=== PATIENT | female | born 1935 | race Two or more races ===

== ENCOUNTER → 2017-07-08 | Outpatient (CLI) | payer MEDICARE, OTHER ==
[2017-07-08 12:26] LABS: Basophils # (auto) 0.1 uL; Basophils % (auto) 1.1 % (0.0-2.0); Eosinophils # (auto) 0.2 uL; Eosinophils % (auto) 3.8 % (0.0-7.0); Hematocrit 37.6 % (36.0-46.0); Hemoglobin 12.8 g/dL (12.2-16.2); Lymphocytes # (auto) 1.3 uL; Lymphocytes % (auto) 24.1 % (10.0-50.0); Mean Corpuscular Hemoglobin 33.1 pg (28.0-32.0); Mean Corpuscular Hgb Conc. 34.2 g/dL (32.0-36.0); Mean Corpuscular Volume 96.9 fL (80.0-100.0); Monocytes # (auto) 0.5 uL; Monocytes % (auto) 9.8 % (0.0-12.0); Neutrophils # (auto) 3.3 uL; Neutrophils % (auto) 61.2 % (37.0-80.0); Nucleated Red Blood Cells % 0.1 %; Platelet Count (auto) 267 10^3/uL (140-450); Red Blood Cells 3.88 10^6/uL (4.0-5.20); Red Cell Distribution Width 14.5 % (11.8-14.3); White Blood Cell 5.4 10^3/uL (4.4-10.8)
[2017-07-08 12:56] LABS: Albumin 3.9 g/dL (3.4-5.0); Bilirubin, Direct 0.1 mg/dL (0-0.2); Bilirubin, Total 0.6 mg/dL (0.2-1.0); Calcium 10.2 mg/dL (8.5-10.1); Potassium 4.1 mmol/L (3.5-5.1); Total Protein 6.8 g/dL (6.4-8.2)
== END | disposition home or self-care (01) ==
LOC: LAB 09:25
PROVIDERS: ATTEND Internal Medicine Cardiovascular Disease
DX: E78.00 Pure hypercholesterolemia, unspecified (principal); D64.9 Anemia, unspecified; I10 Essential (primary) hypertension; E03.9 Hypothyroidism, unspecified; E11.9 Type 2 diabetes mellitus without complications; K74.1 Hepatic sclerosis
CPT/HCPCS: 36415; 80048; 80061; 80076; 83036; 84436; 84443; 85025

== ENCOUNTER → 2017-07-29 | Outpatient (CLI) | payer MEDICARE, OTHER | END | disposition home or self-care (01) | LOC: Rad HDHVI 15:48 | PROVIDERS: ATTEND Internal Medicine Cardiovascular Disease | DX: I20.9 Angina pectoris, unspecified (principal); E11.9 Type 2 diabetes mellitus without complications | CPT/HCPCS: 93306 ==

== ENCOUNTER → 2017-10-30 | Outpatient (CLI) | payer MEDICARE, OTHER | END | disposition home or self-care (01) | LOC: Rad HDHVI 12:55 | PROVIDERS: ATTEND Internal Medicine Cardiovascular Disease | DX: M79.89 Other specified soft tissue disorders (principal); E11.9 Type 2 diabetes mellitus without complications; I10 Essential (primary) hypertension; E03.9 Hypothyroidism, unspecified; E78.00 Pure hypercholesterolemia, unspecified | CPT/HCPCS: 93970 ==

== ENCOUNTER → 2017-12-20 | Outpatient (CLI) | payer MEDICARE, OTHER | END | disposition home or self-care (01) | LOC: Rad HDHVI 12:40 | PROVIDERS: ATTEND Internal Medicine Cardiovascular Disease | DX: M85.88 Other specified disorders of bone density and structure, other site (principal); I10 Essential (primary) hypertension; E03.9 Hypothyroidism, unspecified; E11.9 Type 2 diabetes mellitus without complications | CPT/HCPCS: 77078 ==

== ENCOUNTER → 2017-12-27 | Outpatient (CLI) | payer MEDICARE, BC | END | disposition home or self-care (01) | LOC: Rad HDHVI 14:47 | PROVIDERS: ATTEND Internal Medicine | DX: I10 Essential (primary) hypertension (principal); I48.0 Paroxysmal atrial fibrillation; R07.89 Other chest pain; E11.9 Type 2 diabetes mellitus without complications; E03.9 Hypothyroidism, unspecified; E78.00 Pure hypercholesterolemia, unspecified | CPT/HCPCS: 93306 ==

== ENCOUNTER → 2018-02-04 | Outpatient (CLI) | payer MEDICARE, BC ==
[2018-02-04 12:31] LABS: Basophils # (auto) 0.1 uL; Eosinophils # (auto) 0.2 uL; Monocytes # (auto) 0.5 uL; Monocytes % (auto) 8.1 % (0.0-12.0); Red Cell Distribution Width 14.8 % (11.8-14.3)
[2018-02-04 12:36] LABS: Basophils % (auto) 1.4 % (0.0-2.0); Eosinophils % (auto) 3.8 % (0.0-7.0); Hematocrit 36.3 % (36.0-46.0); Hemoglobin 12.2 g/dL (12.2-16.2); Lymphocytes # (auto) 1.4 uL; Lymphocytes % (auto) 21.8 % (10.0-50.0); Mean Corpuscular Hemoglobin 33.5 pg (28.0-32.0); Mean Corpuscular Hgb Conc. 33.6 g/dL (32.0-36.0); Mean Corpuscular Volume 99.7 fL (80.0-100.0); Neutrophils # (auto) 4.2 uL; Neutrophils % (auto) 64.9 % (37.0-80.0); Platelet Count (auto) 232 10^3/uL (140-450); Red Blood Cells 3.64 10^6/uL (4.0-5.20); White Blood Cell 6.5 10^3/uL (4.4-10.8)
[2018-02-04 12:53] LABS: Albumin 3.5 g/dL (3.4-5.0); BUN/Creatinine Ratio 21.3; Bilirubin, Total 0.5 mg/dL (0.2-1.0); Potassium 3.6 mmol/L (3.5-5.1); Total Protein 6.4 g/dL (6.4-8.2)
== END | disposition home or self-care (01) ==
LOC: LAB 10:52
PROVIDERS: ATTEND Internal Medicine Cardiovascular Disease
DX: D64.9 Anemia, unspecified (principal); E11.9 Type 2 diabetes mellitus without complications; I10 Essential (primary) hypertension
CPT/HCPCS: 36415; 80053; 83036; 85025

== ENCOUNTER → 2018-07-09 | Outpatient (CLI) | payer MEDICARE, BC | END | disposition home or self-care (01) | LOC: LAB 10:53 | PROVIDERS: ATTEND Internal Medicine | DX: E11.40 Type 2 diabetes mellitus with diabetic neuropathy, unspecified (principal) | CPT/HCPCS: 36415 ==

== ENCOUNTER → 2018-07-31 | Outpatient (CLI) | payer MEDICARE, BC ==
[2018-07-31 15:57] LABS: Urine Blood 1+ /uL (Negative); Urine Specific Gravity 1.014 (1.001-1.035)
== END | disposition home or self-care (01) ==
LOC: LAB 14:51
PROVIDERS: ATTEND Internal Medicine
DX: N39.0 Urinary tract infection, site not specified (principal)
CPT/HCPCS: 81003; 87086

== ENCOUNTER → 2018-11-17 | Outpatient (CLI) | payer MEDICARE, BC ==
[2018-11-17 13:15] LABS: Potassium 4.4 mmol/L (3.5-5.1)
[2018-11-17 13:32] LABS: Albumin 3.5 g/dL (3.4-5.0); Bilirubin, Total 0.4 mg/dL (0.2-1.0); Calcium 10.2 mg/dL (8.5-10.1); Total Protein 6.7 g/dL (6.4-8.2)
== END | disposition home or self-care (01) ==
LOC: LAB 10:20
PROVIDERS: ATTEND Internal Medicine
DX: E11.9 Type 2 diabetes mellitus without complications (principal); R53.1 Weakness; I10 Essential (primary) hypertension
CPT/HCPCS: 36415; 80053; 83036

== ENCOUNTER → 2018-12-23 | Outpatient (CLI) | payer MEDICARE, BC ==
[2018-12-23 16:59] LABS: Urine Blood 1+ /uL (Negative); Urine Specific Gravity 1.014 (1.001-1.035)
== END | disposition home or self-care (01) ==
LOC: LAB 12:32
PROVIDERS: ATTEND Internal Medicine
DX: N39.0 Urinary tract infection, site not specified (principal)
CPT/HCPCS: 81003

== ENCOUNTER → 2019-01-29 | Outpatient (CLI) | payer MEDICARE, BC ==
[2019-01-29 11:49] LABS: BUN/Creatinine Ratio 14.5; Potassium 4.4 mmol/L (3.5-5.1)
[2019-01-29 12:01] LABS: Free T4 (Free Thyroxine) 0.99 ng/dL (0.89-1.76)
[2019-01-29 12:02] LABS: Folate (Folic Acid) 16.25 ng/mL (5.38-24)
== END | disposition home or self-care (01) ==
LOC: LAB 10:01
PROVIDERS: ATTEND Internal Medicine
DX: E11.22 Type 2 diabetes mellitus with diabetic chronic kidney disease (principal); N18.9 Chronic kidney disease, unspecified
CPT/HCPCS: 36415; 80048; 82607; 82746; 84439; 84443

== ENCOUNTER → 2019-02-10 | Outpatient (CLI) | payer MEDICARE, BC | END | disposition home or self-care (01) | LOC: LAB 14:59 | PROVIDERS: ATTEND Internal Medicine | DX: E11.29 Type 2 diabetes mellitus with other diabetic kidney complication (principal) | CPT/HCPCS: 36415; 82043; 83036 ==

== ENCOUNTER → 2019-07-29 | Outpatient (CLI) | payer MEDICARE, BC ==
[2019-07-29 11:40] LABS: Basophils # (auto) 0.1 uL; Basophils % (auto) 0.7 % (0.0-2.0); Eosinophils # (auto) 0.6 uL; Eosinophils % (auto) 6.1 % (0.0-7.0); Hemoglobin 11.6 g/dL (12.2-16.2); Lymphocytes # (auto) 1.8 uL; Lymphocytes % (auto) 19.9 % (10.0-50.0); Mean Corpuscular Hgb Conc. 33.2 g/dL (32.0-36.0); Mean Corpuscular Volume 96.2 fL (80.0-100.0); Monocytes # (auto) 0.6 uL; Neutrophils % (auto) 66.3 % (37.0-80.0); Nucleated Red Blood Cells % 0.1 %; Platelet Count (auto) 266 10^3/uL (140-450); Red Blood Cells 3.64 10^6/uL (4.0-5.20); Red Cell Distribution Width 13.8 % (11.8-14.3); White Blood Cell 9.1 10^3/uL (4.4-10.8)
[2019-07-29 11:59] LABS: Urine Bacteria NONE SEEN /hpf (None Seen); Urine Blood TRACE /uL (Negative); Urine Mucus FEW (None Seen); Urine Specific Gravity 1.019 (1.001-1.035); Urine WBC 261 /hpf (0 - 5); Urine WBC Clumps PRESENT /hpf (None Seen)
[2019-07-29 12:20] LABS: Potassium 4.1 mmol/L (3.5-5.1)
[2019-07-29 12:26] LABS: Free T4 (Free Thyroxine) 1.23 ng/dL (0.89-1.76)
[2019-07-29 12:33] LABS: Albumin 3.5 g/dL (3.4-5.0); BUN/Creatinine Ratio 27.7; Bilirubin, Direct 0.1 mg/dL (0-0.2); Bilirubin, Total 0.5 mg/dL (0.2-1.0); Calcium 10.5 mg/dL (8.5-10.1); Total Protein 6.9 g/dL (6.4-8.2)
== END | disposition home or self-care (01) ==
LOC: LAB 11:05
PROVIDERS: ATTEND Internal Medicine
DX: E03.9 Hypothyroidism, unspecified (principal); E11.22 Type 2 diabetes mellitus with diabetic chronic kidney disease; K90.9 Intestinal malabsorption, unspecified; N39.0 Urinary tract infection, site not specified; D51.9 Vitamin B12 deficiency anemia, unspecified; Z79.899 Other long term (current) drug therapy
CPT/HCPCS: 36415; 80053; 80061; 80076; 81001; 82306; 82607; 83036; 84439; 84443; 85025

== ENCOUNTER → 2019-08-24 | Outpatient (CLI) | payer MEDICARE, BC | END | disposition home or self-care (01) | LOC: Rad HDHVI 13:51 | PROVIDERS: ATTEND Internal Medicine | DX: I65.23 Occlusion and stenosis of bilateral carotid arteries (principal); I10 Essential (primary) hypertension; R53.1 Weakness; Z86.73 Personal history of transient ischemic attack (TIA), and cerebral infarction without residual deficits | CPT/HCPCS: 93880 ==

== ENCOUNTER → 2019-11-03 | Outpatient (CLI) | payer MEDICARE, BC ==
[2019-11-03 10:29] LABS: Basophils # (auto) 0 10 ^3/uL (0-0.2); Basophils % (auto) 0.6 % (0.0-2.0); Eosinophils # (auto) 0.5 10 ^3/uL (0-0.8); Eosinophils % (auto) 6.7 % (0.0-7.0); Hematocrit 36.9 % (36.0-46.0); Hemoglobin 12.2 g/dL (12.2-16.2); Lymphocytes # (auto) 1.6 10 ^3/uL (0.4-5.4); Lymphocytes % (auto) 21.6 % (10.0-50.0); Mean Corpuscular Hemoglobin 31.4 pg (28.0-32.0); Mean Corpuscular Hgb Conc. 33.1 g/dL (32.0-36.0); Monocytes # (auto) 0.6 10 ^3/uL (0-1.3); Monocytes % (auto) 8.4 % (0.0-12.0); Neutrophils # (auto) 4.6 10 ^3/uL (1.6-8.6); Neutrophils % (auto) 62.7 % (37.0-80.0); Platelet Count (auto) 258 10^3/uL (140-450); Red Blood Cells 3.89 10^6/uL (4.0-5.20); Red Cell Distribution Width 14.6 % (11.8-14.3); White Blood Cell 7.4 10^3/uL (4.4-10.8)
[2019-11-03 11:00] LABS: Albumin 3.4 g/dL (3.4-5.0); Calcium 9.9 mg/dL (8.5-10.1); Potassium 4.4 mmol/L (3.5-5.1)
[2019-11-03 11:04] LABS: BUN/Creatinine Ratio 25.5; Bilirubin, Total 0.5 mg/dL (0.2-1.0)
== END | disposition home or self-care (01) ==
LOC: LAB 10:16
PROVIDERS: ATTEND Internal Medicine
DX: E11.22 Type 2 diabetes mellitus with diabetic chronic kidney disease (principal); N18.9 Chronic kidney disease, unspecified
CPT/HCPCS: 36415; 80053; 82043; 83036; 85025

== ENCOUNTER → 2020-03-29 | Outpatient (CLI) | payer MEDICARE, BC ==
[2020-03-29 12:18] LABS: Albumin 3.6 g/dL (3.4-5.0); Calcium 10.4 mg/dL (8.5-10.1); Potassium 4.4 mmol/L (3.5-5.1)
[2020-03-29 12:29] LABS: BUN/Creatinine Ratio 24.1; Bilirubin, Total 0.6 mg/dL (0.2-1.0); Total Protein 6.6 g/dL (6.4-8.2)
== END | disposition home or self-care (01) ==
LOC: LAB 11:26
PROVIDERS: ATTEND Internal Medicine
DX: E11.22 Type 2 diabetes mellitus with diabetic chronic kidney disease (principal); N18.9 Chronic kidney disease, unspecified
CPT/HCPCS: 36415; 80053; 80061; 83036

== ENCOUNTER → 2020-05-10 | Outpatient (CLI) | payer MEDICARE, BC ==
[2020-05-10 11:30] LABS: Potassium 4.3 mmol/L (3.5-5.1)
[2020-05-10 11:38] LABS: Albumin 3.5 g/dL (3.4-5.0); BUN/Creatinine Ratio 32.7; Bilirubin, Total 0.5 mg/dL (0.2-1.0); Calcium 9.8 mg/dL (8.5-10.1); Total Protein 6.5 g/dL (6.4-8.2)
== END | disposition home or self-care (01) ==
LOC: LAB 10:20
PROVIDERS: ATTEND Internal Medicine
DX: E11.22 Type 2 diabetes mellitus with diabetic chronic kidney disease (principal); N18.9 Chronic kidney disease, unspecified
CPT/HCPCS: 36415; 80053

== ENCOUNTER → 2020-07-05 | Outpatient (CLI) | payer MEDICARE, BC ==
[2020-07-05 10:44] LABS: BUN/Creatinine Ratio 23.8; Calcium 9.9 mg/dL (8.5-10.1); Potassium 4.1 mmol/L (3.5-5.1)
== END | disposition home or self-care (01) ==
LOC: LAB 10:19
PROVIDERS: ATTEND Internal Medicine
DX: E11.22 Type 2 diabetes mellitus with diabetic chronic kidney disease (principal); N18.9 Chronic kidney disease, unspecified
CPT/HCPCS: 36415; 80048; 83036

== ENCOUNTER → 2020-12-15 | Outpatient (CLI) | payer MEDICARE, BC ==
[2020-12-15 11:04] LABS: Basophils # (auto) 0.1 10 ^3/uL (0-0.2); Basophils % (auto) 1.2 % (0.0-2.0); Eosinophils # (auto) 0.2 10 ^3/uL (0-0.8); Eosinophils % (auto) 3.8 % (0.0-7.0); Hematocrit 36.3 % (36.0-46.0); Hemoglobin 12.6 g/dL (12.2-16.2); Lymphocytes # (auto) 1.3 10 ^3/uL (0.4-5.4); Lymphocytes % (auto) 21.8 % (10.0-50.0); Mean Corpuscular Hemoglobin 32.7 pg (28.0-32.0); Mean Corpuscular Hgb Conc. 34.6 g/dL (32.0-36.0); Mean Corpuscular Volume 94.5 fL (80.0-100.0); Monocytes # (auto) 0.6 10 ^3/uL (0-1.3); Monocytes % (auto) 9.2 % (0.0-12.0); Neutrophils # (auto) 3.9 10 ^3/uL (1.6-8.6); Platelet Count (auto) 215 10^3/uL (140-450); Red Blood Cells 3.85 10^6/uL (4.0-5.20); Red Cell Distribution Width 14.7 % (11.8-14.3); White Blood Cell 6.1 10^3/uL (4.4-10.8)
[2020-12-15 11:28] LABS: Urine Bacteria NONE SEEN /hpf (None Seen); Urine Blood 2+ /uL (Negative); Urine Specific Gravity 1.015 (1.001-1.035); Urine WBC 88 /hpf (0 - 5); Urine WBC Clumps PRESENT /hpf (None Seen)
[2020-12-15 11:49] LABS: Potassium 4.3 mmol/L (3.5-5.1)
[2020-12-15 12:08] LABS: Albumin 3.5 g/dL (3.4-5.0); BUN/Creatinine Ratio 28.1; Bilirubin, Total 0.6 mg/dL (0.2-1.0); Calcium 10.2 mg/dL (8.5-10.1); Total Protein 6.6 g/dL (6.4-8.2)
== END | disposition home or self-care (01) ==
LOC: LAB 10:35
PROVIDERS: ATTEND Internal Medicine
DX: E11.9 Type 2 diabetes mellitus without complications (principal)
CPT/HCPCS: 36415; 80053; 80061; 81001; 82043; 83036; 85025

== ENCOUNTER → 2022-01-10 | Outpatient (CLI) | payer MEDICARE, BC ==
[2022-01-10 11:09] LABS: Basophils # (auto) 0 10 ^3/uL (0-0.2); Basophils % (auto) 0.6 % (0.0-2.0); Eosinophils # (auto) 0.4 10 ^3/uL (0-0.8); Eosinophils % (auto) 5.6 % (0.0-7.0); Hematocrit 39.2 % (36.0-46.0); Hemoglobin 12.8 g/dL (12.2-16.2); Lymphocytes # (auto) 1.6 10 ^3/uL (0.4-5.4); Lymphocytes % (auto) 23.9 % (10.0-50.0); Mean Corpuscular Hemoglobin 32.6 pg (28.0-32.0); Mean Corpuscular Hgb Conc. 32.6 g/dL (32.0-36.0); Mean Corpuscular Volume 99.9 fL (80.0-100.0); Monocytes # (auto) 0.6 10 ^3/uL (0-1.3); Monocytes % (auto) 9.5 % (0.0-12.0); Neutrophils # (auto) 3.9 10 ^3/uL (1.6-8.6); Neutrophils % (auto) 60.4 % (37.0-80.0); Nucleated Red Blood Cells % 0.1 %; Red Blood Cells 3.93 10^6/uL (4.0-5.20); Red Cell Distribution Width 12.9 % (11.8-14.3); White Blood Cell 6.5 10^3/uL (4.4-10.8)
[2022-01-10 11:34] LABS: Urine Bacteria MANY /hpf (None Seen); Urine Blood 3+ /uL (Negative); Urine Mucus FEW (None Seen); Urine Specific Gravity 1.018 (1.001-1.035); Urine WBC 73 /hpf (0 - 5); Urine WBC Clumps PRESENT /hpf (None Seen)
[2022-01-10 11:55] LABS: Albumin 3.4 g/dL (3.4-5.0); BUN/Creatinine Ratio 18.2; Bilirubin, Total 0.5 mg/dL (0.2-1.0); Total Protein 6.6 g/dL (6.4-8.2)
== END | disposition home or self-care (01) ==
LOC: LAB 10:49
PROVIDERS: ATTEND Internal Medicine
DX: E11.22 Type 2 diabetes mellitus with diabetic chronic kidney disease (principal)
CPT/HCPCS: 36415; 80053; 80061; 81001; 82043; 83036; 84443; 85025

== ENCOUNTER → 2022-08-16 | Outpatient (CLI) | payer MEDICARE, BC | END | disposition home or self-care (01) | LOC: XYW 13:15 | PROVIDERS: ATTEND Internal Medicine | DX: I08.1 Rheumatic disorders of both mitral and tricuspid valves (principal); I11.9 Hypertensive heart disease without heart failure; I27.20 Pulmonary hypertension, unspecified; I48.0 Paroxysmal atrial fibrillation | CPT/HCPCS: 93306 ==

== ENCOUNTER 2022-10-31 17:00 | Inpatient (IN) | payer MEDICARE, BC ==
[~2022-10-31] VITALS: Ht 154.9 cm; Wt 54.1 kg
[2022-10-31] MEDS ORDERED: MAALOX PLUS or MAALOX 30 ML PO PRN (19:15)
[2022-10-31] MEDS ORDERED: ONDANSETRON HCL 4 MG/2 ML VIAL IV PRN (19:15)
[2022-10-31] MEDS ORDERED: ACETAMINOPHEN 325 MG TAB PO PRN (19:15)
[2022-10-31] MEDS ORDERED: LORazepam 0.5 MG TAB PO PRN (19:15)
[2022-10-31] MEDS ORDERED: DOCUSATE SOD 100 MG CAP PO PRN (19:15)
[2022-10-31] MEDS ORDERED: HYDROmorphone HCL 2 MG/ML VL/or syr IV PRN (19:15)
[2022-10-31 19:30] VITALS: BP 139/64
[2022-10-31 20:14] LABS: Basophils # (auto) 0 10 ^3/uL (0-0.2); Basophils % (auto) 0.8 % (0.0-2.0); Eosinophils # (auto) 0.2 10 ^3/uL (0-0.8); Eosinophils % (auto) 3.9 % (0.0-7.0); Hematocrit 38.6 % (36.0-46.0); Hemoglobin 13.4 g/dL (12.2-16.2); Lymphocytes # (auto) 1.8 10 ^3/uL (0.4-5.4); Lymphocytes % (auto) 31.3 % (10.0-50.0); Mean Corpuscular Hemoglobin 34.4 pg (28.0-32.0); Mean Corpuscular Hgb Conc. 34.6 g/dL (32.0-36.0); Mean Corpuscular Volume 99.2 fL (80.0-100.0); Monocytes # (auto) 0.7 10 ^3/uL (0-1.3); Monocytes % (auto) 12.7 % (0.0-12.0); Neutrophils % (auto) 51.3 % (37.0-80.0); Red Blood Cells 3.89 10^6/uL (4.0-5.20); Red Cell Distribution Width 14.2 % (11.8-14.3); White Blood Cell 5.8 10^3/uL (4.4-10.8)
[2022-10-31 20:39] LABS: Potassium 3.4 mmol/L (3.5-5.1)
[2022-10-31] MEDS: SODIUM CHLORIDE 0.9% 1,000 ML IV SCH (20:46)
[2022-10-31 20:47] LABS: Albumin 3.4 g/dL (3.4-5.0); BUN/Creatinine Ratio 13.4 (10.0-20.0); Bilirubin, Total 0.7 mg/dL (0.2-1.0); Calcium 9.7 mg/dL (8.5-10.1); Magnesium 2.1 mg/dL (1.6-2.6); Phosphorus 2.1 mg/dL (2.5-4.90); Total Protein 6.2 g/dL (6.4-8.2)
[2022-10-31 21:50] VITALS: BP_SYST 125; BP_SYST 167; BP_DIAS 69; BP_DIAS 79
[2022-11-01] MEDS: HYDROcodone-ACET 5/325MG TAB PO PRN ×2 (02:11→21:54)
[2022-11-01 04:52] VITALS: BP 129/60
[2022-11-01] MEDS ORDERED: LISI20TA28 PO (06:38)
[2022-11-01] MEDS ORDERED: SITA25TA3 PO (06:38)
[2022-11-01] MEDS ORDERED: HYDR25TA87 PO (06:38)
[2022-11-01] MEDS ORDERED: METF-370 PO (06:38)
[2022-11-01] MEDS ORDERED: AMIO200T4 PO (06:38)
[2022-11-01] MEDS ORDERED: HYDR25TA5 PO (06:38)
[2022-11-01 08:40] VITALS: BP 144/57
[2022-11-01] MEDS ORDERED: POTASSIUM PHOSPHATE 26.4 MEQ in SODIUM CHL 0.9% 100 ML IV ONE ×2 (09:15→11:00)
[2022-11-01] MEDS ORDERED: GADOTERATE MEG 10 MMOL/20ml INJ (0.5MMOL/ml) IV ONE (10:35)
[2022-11-01 12:40] VITALS: BP 133/61
[2022-11-01 14:01] LABS: Urine Bacteria NONE SEEN /hpf (None Seen); Urine Blood Negative /uL (Negative); Urine Budding Yeast FEW /hpf (None Seen); Urine Specific Gravity 1.009 (1.001-1.035); Urine WBC 253 /hpf (0 - 5)
[2022-11-01] MEDS ORDERED: levoFLOXacin 500MG 100 ML IV SCH (15:15)
[2022-11-01] MEDS ORDERED: hydrALAZINE HCL 25 MG TAB PO ONE (16:00)
[2022-11-01 16:35] VITALS: BP 159/65
[2022-11-01] MEDS: SODIUM CHLORIDE 0.9% 1,000 ML IV SCH (16:53)
[2022-11-01] MEDS: hydrALAZINE HCL 25 MG TAB PO SCH (21:54)
[2022-11-01] MEDS: metroNIDAZOLE 500MG/100ML 100 ML IV SCH (21:55)
[2022-11-01 22:00] VITALS: BP 143/60
[2022-11-02 05:00] VITALS: BP 134/53
[2022-11-02 05:42] LABS: Basophils # (auto) 0 10 ^3/uL (0-0.2); Basophils % (auto) 0.8 % (0.0-2.0); Eosinophils # (auto) 0.4 10 ^3/uL (0-0.8); Eosinophils % (auto) 6.8 % (0.0-7.0); Hematocrit 34.1 % (36.0-46.0); Hemoglobin 11.8 g/dL (12.2-16.2); Lymphocytes # (auto) 1.3 10 ^3/uL (0.4-5.4); Lymphocytes % (auto) 25.9 % (10.0-50.0); Mean Corpuscular Hemoglobin 34.1 pg (28.0-32.0); Mean Corpuscular Hgb Conc. 34.7 g/dL (32.0-36.0); Mean Corpuscular Volume 98.3 fL (80.0-100.0); Monocytes # (auto) 0.7 10 ^3/uL (0-1.3); Neutrophils # (auto) 2.7 10 ^3/uL (1.6-8.6); Neutrophils % (auto) 52.5 % (37.0-80.0); Nucleated Red Blood Cells % 0.1 %; Red Blood Cells 3.47 10^6/uL (4.0-5.20); Red Cell Distribution Width 13.8 % (11.8-14.3); White Blood Cell 5.2 10^3/uL (4.4-10.8)
[2022-11-02 05:56] LABS: BUN/Creatinine Ratio 10.2 (10.0-20.0); Calcium 9.1 mg/dL (8.5-10.1); Magnesium 1.7 mg/dL (1.6-2.6); Phosphorus 2.8 mg/dL (2.5-4.90)
[2022-11-02] MEDS: hydrALAZINE HCL 25 MG TAB PO SCH ×2 (06:08→14:20)
[2022-11-02] MEDS: metroNIDAZOLE 500MG/100ML 100 ML IV SCH ×2 (06:09→14:18)
[2022-11-02] MEDS: SODIUM CHLORIDE 0.9% 1,000 ML IV SCH (06:17)
[2022-11-02 08:36] VITALS: BP 137/59
[2022-11-02 12:55] VITALS: BP 122/68
== END 2022-11-02 16:12 | disposition home or self-care (01) | DRG 683 ==
LOC: WEST WING 17:00
PROVIDERS: ADMIT Internal Medicine; ATTEND Internal Medicine
DX: N17.9 Acute kidney failure, unspecified (principal); N39.0 Urinary tract infection, site not specified; N18.4 Chronic kidney disease, stage 4 (severe); K52.9 Noninfective gastroenteritis and colitis, unspecified; I13.10 Hypertensive heart and chronic kidney disease without heart failure, with stage 1 through stage 4 chronic kidney disease, or unspecified chronic kidney disease; I48.91 Unspecified atrial fibrillation; E78.5 Hyperlipidemia, unspecified; E11.22 Type 2 diabetes mellitus with diabetic chronic kidney disease; Z80.0 Family history of malignant neoplasm of digestive organs; Z82.49 Family history of ischemic heart disease and other diseases of the circulatory system; Z90.710 Acquired absence of both cervix and uterus
CPT/HCPCS: 36415; 71045; 74176; 74183; 80048; 80053; 81001; 82378; 83036; 83690; 83735; 84100; 85025; 86300; 86301; 86304; 87086; 87088; 87186; G0378; J1956; J3490

== ENCOUNTER → 2023-05-21 | Outpatient (CLI) | payer MEDICARE, BC ==
[~2023-05-21] MED LIST: AMIO200T13 PO; HYDR25TA5 PO; HYDR25TA87 PO; LISI20TA56 PO; METF-370 PO; SITA25TA3 PO
[2023-05-21 10:50] LABS: Basophils # (auto) 0.1 10 ^3/uL (0-0.2); Basophils % (auto) 1.1 % (0.0-2.0); Eosinophils # (auto) 0.2 10 ^3/uL (0-0.8); Eosinophils % (auto) 4.5 % (0.0-7.0); Hematocrit 33.3 % (36.0-46.0); Hemoglobin 11.1 g/dL (12.2-16.2); Lymphocytes # (auto) 1.6 10 ^3/uL (0.4-5.4); Lymphocytes % (auto) 33.9 % (10.0-50.0); Mean Corpuscular Hemoglobin 31.7 pg (28.0-32.0); Mean Corpuscular Hgb Conc. 33.2 g/dL (32.0-36.0); Mean Corpuscular Volume 95.6 fL (80.0-100.0); Monocytes # (auto) 0.4 10 ^3/uL (0-1.3); Monocytes % (auto) 9.4 % (0.0-12.0); Neutrophils # (auto) 2.4 10 ^3/uL (1.6-8.6); Neutrophils % (auto) 51.1 % (37.0-80.0); Red Blood Cells 3.49 10^6/uL (4.0-5.20); White Blood Cell 4.7 10^3/uL (4.4-10.8)
[2023-05-21 10:55] LABS: Red Cell Distribution Width 20.5 % (11.8-14.3)
[2023-05-21 11:15] LABS: Urine Bacteria NONE SEEN /hpf (None Seen); Urine Blood TRACE /uL (Negative); Urine Budding Yeast MODERATE /hpf (None Seen); Urine Clarity HAZY (Clear); Urine Protein, UAD TRACE (Negative); Urine Specific Gravity 1.013 (1.001-1.035); Urine Urobilinogen Normal (Negative); Urine WBC 332 /hpf (0 - 5); Urine WBC Clumps PRESENT /hpf (None Seen); Urine pH 5.5 (5.0-8.0)
[2023-05-21 11:16] LABS: Urine Color Straw (Yellow)
[2023-05-21 11:23] LABS: Alkaline Phosphatase 96 U/L (46-116); Anion Gap 5 (5-15); Blood Urea Nitrogen 22 mg/dL (9-23); Calcium 9.8 mg/dL (8.5-10.1); Carbon Dioxide 29 mmol/L (20-30); Chloride 108 mmol/L (98-107); Glucose 96 mg/dL (74-106); Potassium 4.2 mmol/L (3.5-5.1); Sodium 142 mmol/L (136-145)
[2023-05-21 11:24] LABS: Albumin 3.8 g/dL (3.2-4.8); Aspartate Aminotransferase 14 U/L (13-40)
[2023-05-21 11:25] LABS: Bilirubin, Total 0.6 mg/dL (0.2-1.0); Total Protein 6.1 g/dL (5.7-8.2)
[2023-05-21 12:30] LABS: Alanine Aminotransferase < 9 U/L (7-40)
== END | disposition home or self-care (01) ==
LOC: LAB 10:15
PROVIDERS: ATTEND Internal Medicine
DX: I10 Essential (primary) hypertension (principal)
CPT/HCPCS: 36415; 80053; 81001; 82043; 84439; 84443; 85025

== ENCOUNTER 2023-05-29 15:09 | Inpatient (IN) | payer MEDICARE, BC ==
[~2023-05-29] VITALS: Ht 30.5 cm; Wt 60.2 kg
[2023-05-29] MEDS ORDERED: IRBE300T43 PO (15:43)
[2023-05-29] MEDS ORDERED: METO25TA5 PO (15:43)
[2023-05-29] MEDS ORDERED: GLIP5TAB12 PO (15:43)
[2023-05-29] MEDS ORDERED: KEP500T PO (15:43)
[2023-05-29] MEDS ORDERED: LEV75T PO (15:43)
[2023-05-29] MEDS ORDERED: APIX2.5T PO (15:43)
[2023-05-29] MEDS ORDERED: NITROGLYCERIN 0.4 MG SL TAB SL PRN (15:45)
[2023-05-29] MEDS ORDERED: MORPHINE SULFATE INJ 2 MG/ml SYRG IV PRN (15:45)
[2023-05-29 16:58] VITALS: RESP 18; O2SAT 95
[2023-05-29 17:00] VITALS: BP 168/76; PULSE 51; RESP 16; TEMP 99.2; O2SAT 100
[2023-05-29] MEDS ORDERED: ACETAMINOPHEN 500 MG TAB PO PRN (17:15)
[2023-05-29] MEDS ORDERED: DEXTROSE (50%) 50ML SYRG IV PRN (17:30)
[2023-05-29] MEDS ORDERED: cefTRIAXone 1GM/50ML D5W 50 ML IV ONE (17:45)
[2023-05-29] MEDS: FUROSEMIDE 20 MG/2 ML VIAL IV SCH (18:00)
[2023-05-29] MEDS ORDERED: hydrALAZINE HCL 25 MG TAB PO ONE (19:00)
[2023-05-29] MEDS ORDERED: NIFEdipine ER 30 MG TAB PO ONE (19:00)
[2023-05-29 19:20] LABS: Urine Bacteria FEW /hpf (None Seen); Urine Blood Negative /uL (Negative); Urine Clarity Clear (Clear); Urine Color Colorless (Yellow); Urine Protein, UAD Negative (Negative); Urine Urobilinogen Normal (Negative); Urine WBC 13 /hpf (0 - 5); Urine pH 6.5 (5.0-8.0)
[2023-05-29 19:24] LABS: Basophils # (auto) 0.1 10 ^3/uL (0-0.2); Basophils % (auto) 1.1 % (0.0-2.0); Eosinophils # (auto) 0.2 10 ^3/uL (0-0.8); Eosinophils % (auto) 3.3 % (0.0-7.0); Hematocrit 34.1 % (36.0-46.0); Hemoglobin 11.3 g/dL (12.2-16.2); Lymphocytes # (auto) 1.7 10 ^3/uL (0.4-5.4); Lymphocytes % (auto) 28.9 % (10.0-50.0); Mean Corpuscular Hemoglobin 31.9 pg (28.0-32.0); Mean Corpuscular Volume 96.4 fL (80.0-100.0); Monocytes # (auto) 0.5 10 ^3/uL (0-1.3); Monocytes % (auto) 7.8 % (0.0-12.0); Neutrophils # (auto) 3.4 10 ^3/uL (1.6-8.6); Neutrophils % (auto) 58.9 % (37.0-80.0); Nucleated Red Blood Cells % 0.1 %; Red Blood Cells 3.54 10^6/uL (4.0-5.20); Red Cell Distribution Width 19.2 % (11.8-14.3); White Blood Cell 5.9 10^3/uL (4.4-10.8)
[2023-05-29 19:59] LABS: Alanine Aminotransferase 10 U/L (7-40); Albumin 3.8 g/dL (3.2-4.8); Alkaline Phosphatase 94 U/L (46-116); Anion Gap 6 (5-15); Aspartate Aminotransferase 14 U/L (13-40); BUN/Creatinine Ratio 13.5 (10.0-20.0); Blood Urea Nitrogen 23 mg/dL (9-23); Calcium 9.8 mg/dL (8.5-10.1); Carbon Dioxide 28 mmol/L (20-30); Chloride 107 mmol/L (98-107); Glucose 143 mg/dL (74-106); Potassium 4.2 mmol/L (3.5-5.1); Sodium 141 mmol/L (136-145)
[2023-05-29 20:00] LABS: Bilirubin, Total 0.4 mg/dL (0.2-1.0); Total Protein 6.3 g/dL (5.7-8.2)
[2023-05-29] MEDS ORDERED: POTASSIUM CHL 20 Meq TABLET PO ONE (20:17)
[2023-05-29 22:00] VITALS: BP 174/60; PULSE 63; RESP 18; TEMP 98.3; O2SAT 10
[2023-05-29] MEDS: InsuLIN REG 1unit/0.01ml Soln (100units/ml) SC SCH (22:00)
[2023-05-29] MEDS ORDERED: LISINOPRIL 20 MG TAB PO SCH (22:00)
[2023-05-29] MEDS: METOPROLOL TARTRATE 25 MG TAB PO SCH (22:44)
[2023-05-29] MEDS: ACCU-CHEK COMFORT CURVE STRIP VI SCH (22:44)
[2023-05-29] MEDS: AMIODARONE HCL 200 MG TAB PO SCH (22:44)
[2023-05-29] MEDS: hydrALAZINE HCL 25 MG TAB PO SCH (22:45)
[2023-05-29] MEDS: levETIRAcetam 500 MG TAB PO SCH (22:45)
[2023-05-30 05:00] VITALS: BP 101/51; PULSE 57; RESP 18; TEMP 98.6; O2SAT 100
[2023-05-30] MEDS: FUROSEMIDE 20 MG/2 ML VIAL IV SCH ×2 (06:00→18:02)
[2023-05-30] MEDS: hydrALAZINE HCL 25 MG TAB PO SCH ×3 (06:00→22:26)
[2023-05-30] MEDS: ACCU-CHEK COMFORT CURVE STRIP VI SCH ×4 (06:16→22:27)
[2023-05-30] MEDS: InsuLIN REG 1unit/0.01ml Soln (100units/ml) SC SCH ×4 (06:18→22:00)
[2023-05-30 07:01] LABS: Basophils # (auto) 0.1 10 ^3/uL (0-0.2); Basophils % (auto) 0.8 % (0.0-2.0); Eosinophils # (auto) 0.3 10 ^3/uL (0-0.8); Eosinophils % (auto) 3.2 % (0.0-7.0); Hematocrit 33.2 % (36.0-46.0); Hemoglobin 11.2 g/dL (12.2-16.2); Lymphocytes # (auto) 1.9 10 ^3/uL (0.4-5.4); Lymphocytes % (auto) 22.7 % (10.0-50.0); Mean Corpuscular Hgb Conc. 33.7 g/dL (32.0-36.0); Mean Corpuscular Volume 95.1 fL (80.0-100.0); Monocytes # (auto) 0.6 10 ^3/uL (0-1.3); Monocytes % (auto) 7.6 % (0.0-12.0); Neutrophils # (auto) 5.4 10 ^3/uL (1.6-8.6); Neutrophils % (auto) 65.7 % (37.0-80.0); Red Blood Cells 3.49 10^6/uL (4.0-5.20); Red Cell Distribution Width 19.1 % (11.8-14.3); White Blood Cell 8.2 10^3/uL (4.4-10.8)
[2023-05-30 07:11] LABS: Anion Gap 6 (5-15); Calcium 10.1 mg/dL (8.5-10.1); Carbon Dioxide 30 mmol/L (20-30); Chloride 106 mmol/L (98-107); Potassium 3.8 mmol/L (3.5-5.1); Sodium 142 mmol/L (136-145)
[2023-05-30 07:17] LABS: BUN/Creatinine Ratio 13.5 (10.0-20.0); Blood Urea Nitrogen 23 mg/dL (9-23); Glucose 109 mg/dL (74-106)
[2023-05-30 08:00] VITALS: PULSE 70
[2023-05-30] MEDS: cefTRIAXone 1GM/50ML D5W 50 ML IV SCH (08:46)
[2023-05-30] MEDS: LEVOTHYROXINE SODIUM 25 MCG TAB PO SCH (08:47)
[2023-05-30] MEDS: levETIRAcetam 500 MG TAB PO SCH ×2 (08:47→22:25)
[2023-05-30] MEDS: LOSARTAN POTASSIUM 50 MG TAB PO SCH (08:48)
[2023-05-30] MEDS: METOPROLOL TARTRATE 25 MG TAB PO SCH ×2 (08:55→22:27)
[2023-05-30] MEDS: AMIODARONE HCL 200 MG TAB PO SCH (09:11)
[2023-05-30 09:22] VITALS: BP 103/62; PULSE 55; RESP 16; TEMP 98; O2SAT 96
[2023-05-30 10:04] LABS: Hepatitis B Surface Antigen Negative (Negative)
[2023-05-30 10:26] LABS: Hepatitis C Antibody Negative (Negative)
[2023-05-30] MEDS ORDERED: FUROSEMIDE 20 MG/2 ML VIAL IV ONE (12:00)
[2023-05-30 12:52] VITALS: BP 146/69; PULSE 65; RESP 16; TEMP 98.3; O2SAT 91
[2023-05-30 13:38] LABS: Magnesium 1.8 mg/dL (1.6-2.6)
[2023-05-30 16:50] VITALS: BP 128/53; PULSE 60; RESP 19; TEMP 97; O2SAT 99
[2023-05-30 22:00] VITALS: BP 110/62; PULSE 70; RESP 18; TEMP 97.2; O2SAT 95
[2023-05-30] MEDS: APIXABAN 2.5 MG TAB PO SCH (22:27)
[2023-05-31] MEDS: hydrALAZINE HCL 25 MG TAB PO SCH ×2 (06:00→14:00)
[2023-05-31] MEDS: FUROSEMIDE 20 MG/2 ML VIAL IV SCH (06:23)
[2023-05-31] MEDS: InsuLIN REG 1unit/0.01ml Soln (100units/ml) SC SCH ×3 (06:30→17:00)
[2023-05-31] MEDS: ACCU-CHEK COMFORT CURVE STRIP VI SCH ×3 (06:30→17:00)
[2023-05-31 07:59] LABS: Anion Gap 6 (5-15); Carbon Dioxide 30 mmol/L (20-30); Chloride 105 mmol/L (98-107); Potassium 4.1 mmol/L (3.5-5.1); Sodium 141 mmol/L (136-145)
[2023-05-31 08:00] VITALS: PULSE 53
[2023-05-31 08:04] LABS: BUN/Creatinine Ratio 13.5 (10.0-20.0); Blood Urea Nitrogen 28 mg/dL (9-23); Glucose 108 mg/dL (74-106)
[2023-05-31 08:34] LABS: Basophils # (auto) 0 10 ^3/uL (0-0.2); Basophils % (auto) 0.6 % (0.0-2.0); Eosinophils # (auto) 0.2 10 ^3/uL (0-0.8); Eosinophils % (auto) 3.6 % (0.0-7.0); Hematocrit 34.3 % (36.0-46.0); Hemoglobin 11.4 g/dL (12.2-16.2); Lymphocytes # (auto) 2.3 10 ^3/uL (0.4-5.4); Lymphocytes % (auto) 44.4 % (10.0-50.0); Mean Corpuscular Hemoglobin 31.6 pg (28.0-32.0); Mean Corpuscular Hgb Conc. 33.2 g/dL (32.0-36.0); Mean Corpuscular Volume 95.2 fL (80.0-100.0); Monocytes # (auto) 0.6 10 ^3/uL (0-1.3); Monocytes % (auto) 10.9 % (0.0-12.0); Neutrophils # (auto) 2.1 10 ^3/uL (1.6-8.6); Neutrophils % (auto) 40.5 % (37.0-80.0); Nucleated Red Blood Cells % 0.1 %; Red Cell Distribution Width 19.4 % (11.8-14.3); White Blood Cell 5.1 10^3/uL (4.4-10.8)
[2023-05-31 08:50] VITALS: BP_SYST 116; BP_SYST 149; BP_DIAS 53; BP_DIAS 61; PULSE 53; PULSE 72; RESP 19; RESP 20; TEMP 97.7; TEMP 98.3; O2SAT 93; O2SAT 95
[2023-05-31] MEDS ORDERED: AMIODARONE HCL 200 MG TAB PO SCH (10:00)
[2023-05-31] MEDS: cefTRIAXone 1GM/50ML D5W 50 ML IV SCH (10:00)
[2023-05-31] MEDS: levETIRAcetam 500 MG TAB PO SCH (10:08)
[2023-05-31] MEDS: METOPROLOL TARTRATE 25 MG TAB PO SCH (10:09)
[2023-05-31] MEDS: LOSARTAN POTASSIUM 50 MG TAB PO SCH (10:09)
[2023-05-31] MEDS: LEVOTHYROXINE SODIUM 25 MCG TAB PO SCH (10:10)
[2023-05-31] MEDS: APIXABAN 2.5 MG TAB PO SCH (10:10)
[2023-05-31 13:26] VITALS: BP 124/48; PULSE 58; RESP 17; TEMP 98.2; O2SAT 100
[2023-05-31 16:15] VITALS: BP 132/51; PULSE 62; RESP 18; TEMP 98.2; O2SAT 96
[2023-05-31 16:42] VITALS: BP 132/51; PULSE 62; RESP 18; TEMP 98.2; O2SAT 96
[2023-06-01] MEDS ORDERED: FUROSEMIDE 20 MG TAB PO SCH (10:00)
[2023-06-01] MEDS ORDERED: FUROSEMIDE 40 MG TAB PO SCH (10:00)
== END 2023-05-31 17:29 | disposition home or self-care (01) | DRG 291 ==
LOC: TELE-WESTW 15:09 → WEST WING 15:46
PROVIDERS: ADMIT Internal Medicine; ATTEND Student in an Organized Health Care Education/Training Program
DX: I13.0 Hypertensive heart and chronic kidney disease with heart failure and stage 1 through stage 4 chronic kidney disease, or unspecified chronic kidney disease (principal); I50.31 Acute diastolic (congestive) heart failure; N30.00 Acute cystitis without hematuria; N18.4 Chronic kidney disease, stage 4 (severe); E11.22 Type 2 diabetes mellitus with diabetic chronic kidney disease; I48.91 Unspecified atrial fibrillation; S09.91XA Unspecified injury of ear, initial encounter; J01.00 Acute maxillary sinusitis, unspecified; X58.XXXA Exposure to other specified factors, initial encounter; Z79.899 Other long term (current) drug therapy; Z80.0 Family history of malignant neoplasm of digestive organs; Z82.49 Family history of ischemic heart disease and other diseases of the circulatory system; Y93.89 Activity, other specified; Y92.89 Other specified places as the place of occurrence of the external cause; Y99.8 Other external cause status
CPT/HCPCS: 36415; 70480; 71045; 80048; 80053; 81001; 82306; 82962; 83036; 83735; 83880; 85025; 86803; 87340; 97163; G0378; J0696

== ENCOUNTER → 2023-11-04 | Outpatient (CLI) | payer MEDICARE, BC ==
[~2023-11-04] MED LIST changes: +APIX2.5T PO; +GLIP5TAB21 PO; +IRBE300T43 PO; +KEP500T PO; +LEV75T PO; +METO25TA5 PO
[2023-11-04 11:43] LABS: Basophils # (auto) 0.1 10 ^3/uL (0-0.2); Basophils % (auto) 0.9 % (0.0-2.0); Eosinophils # (auto) 0.3 10 ^3/uL (0-0.8); Eosinophils % (auto) 3.8 % (0.0-7.0); Hematocrit 33.8 % (36.0-46.0); Hemoglobin 11.3 g/dL (12.2-16.2); Lymphocytes # (auto) 1.6 10 ^3/uL (0.4-5.4); Lymphocytes % (auto) 21.1 % (10.0-50.0); Mean Corpuscular Hemoglobin 33.9 pg (28.0-32.0); Mean Corpuscular Hgb Conc. 33.5 g/dL (32.0-36.0); Monocytes # (auto) 0.6 10 ^3/uL (0-1.3); Monocytes % (auto) 7.7 % (0.0-12.0); Neutrophils # (auto) 4.9 10 ^3/uL (1.6-8.6); Neutrophils % (auto) 66.5 % (37.0-80.0); Red Blood Cells 3.35 10^6/uL (4.0-5.20); Red Cell Distribution Width 13.2 % (11.8-14.3); White Blood Cell 7.4 10^3/uL (4.4-10.8)
[2023-11-04 12:03] LABS: Chloride 106 mmol/L (98-107); Potassium 4.7 mmol/L (3.5-5.1); Sodium 141 mmol/L (136-145)
[2023-11-04 12:04] LABS: Anion Gap 7 (5-15); Calcium 10.1 mg/dL (8.5-10.1); Carbon Dioxide 28 mmol/L (20-30)
[2023-11-04 12:09] LABS: BUN/Creatinine Ratio 21.2 (10.0-20.0); Blood Urea Nitrogen 40 mg/dL (9-23); Glucose 231 mg/dL (74-106)
== END | disposition home or self-care (01) ==
LOC: LAB 10:59
PROVIDERS: ATTEND Internal Medicine
DX: I10 Essential (primary) hypertension (principal); R97.0 Elevated carcinoembryonic antigen [CEA]
CPT/HCPCS: 36415; 80048; 82378; 85025

== ENCOUNTER → 2024-03-27 | Outpatient (CLI) | payer MEDICARE, BC ==
[2024-03-27 12:04] LABS: Basophils # (auto) 0 10 ^3/uL (0-0.2); Basophils % (auto) 0.7 % (0.0-2.0); Eosinophils # (auto) 0.3 10 ^3/uL (0-0.8); Eosinophils % (auto) 4.9 % (0.0-7.0); Hematocrit 37.6 % (36.0-46.0); Hemoglobin 12.8 g/dL (12.2-16.2); Lymphocytes # (auto) 1.6 10 ^3/uL (0.4-5.4); Lymphocytes % (auto) 23.7 % (10.0-50.0); Mean Corpuscular Hemoglobin 34.3 pg (28.0-32.0); Mean Corpuscular Volume 100.8 fL (80.0-100.0); Monocytes # (auto) 0.5 10 ^3/uL (0-1.3); Monocytes % (auto) 7.8 % (0.0-12.0); Neutrophils # (auto) 4.1 10 ^3/uL (1.6-8.6); Neutrophils % (auto) 62.9 % (37.0-80.0); Platelet Count (auto) 227 10^3/uL (140-450); Red Blood Cells 3.73 10^6/uL (4.0-5.20); Red Cell Distribution Width 12.8 % (11.8-14.3); White Blood Cell 6.6 10^3/uL (4.4-10.8)
[2024-03-27 12:10] LABS: Urine Bacteria FEW /hpf (None Seen); Urine Blood TRACE /uL (Negative); Urine Clarity Turbid (Clear); Urine Color Colorless (Yellow); Urine Protein, UAD Negative (Negative); Urine Specific Gravity 1.014 (1.001-1.035); Urine Urobilinogen Normal (Negative); Urine WBC 850 /hpf (0 - 5); Urine WBC Clumps PRESENT /hpf (None Seen); Urine pH 5.5 (5.0-9.0)
[2024-03-27 12:46] LABS: Alanine Aminotransferase 12 U/L (7-40); Alkaline Phosphatase 100 U/L (46-116); Anion Gap 7 (5-15); Aspartate Aminotransferase 15 U/L (13-40); BUN/Creatinine Ratio 18.1 (10.0-20.0); Blood Urea Nitrogen 28 mg/dL (9-23); Calcium 10.5 mg/dL (8.7-10.4); Carbon Dioxide 27 mmol/L (20-31); Chloride 109 mmol/L (98-107); Glucose 123 mg/dL (74-106); Potassium 4.6 mmol/L (3.5-5.1); Sodium 143 mmol/L (136-145)
[2024-03-27 12:47] LABS: Bilirubin, Total 0.7 mg/dL (0.2-1.0); Total Protein 6.5 g/dL (5.7-8.2)
== END | disposition home or self-care (01) ==
LOC: LAB 11:03
PROVIDERS: ATTEND Internal Medicine
DX: E11.22 Type 2 diabetes mellitus with diabetic chronic kidney disease (principal); N18.9 Chronic kidney disease, unspecified; Z79.899 Other long term (current) drug therapy
CPT/HCPCS: 36415; 80053; 81001; 82043; 82306; 82607; 83036; 85025

== ENCOUNTER 2024-06-17 14:58 | Inpatient (IN) | payer MEDICARE, BC ==
[~2024-06-17] VITALS: Ht 154.9 cm; Wt 65.0 kg
[~2024-06-17 14:58] MED LIST changes: -AMIO200T13 PO; -APIX2.5T PO; -HYDR25TA5 PO; -HYDR25TA87 PO; -LISI20TA56 PO; -SITA25TA3 PO
[2024-06-17 16:33] VITALS: BP 149/89; PULSE 127; RESP 18; TEMP 97.8; O2SAT 98
[2024-06-17] MEDS ORDERED: MAALOX PLUS or MAALOX 30 ML PO PRN (17:45)
[2024-06-17] MEDS ORDERED: ACETAMINOPHEN 325 MG TAB PO PRN (17:45)
[2024-06-17] MEDS ORDERED: MORPHINE SULFATE INJ 2 MG/ml SYRG IV PRN ×2 (17:45)
[2024-06-17] MEDS ORDERED: NITROGLYCERIN 0.4 MG SL TAB SL PRN (17:45)
[2024-06-17] MEDS ORDERED: HYDROcodone-ACET 5/325MG TAB PO PRN (17:45)
[2024-06-17] MEDS ORDERED: ONDANSETRON HCL 4 MG/2 ML VIAL IV PRN (17:45)
[2024-06-17 18:21] VITALS: BP 149/89; PULSE 127; RESP 18; TEMP 97.8; O2SAT 95
--- NOTE | 2024-06-17 19:36 | DVHINCON2 ---
Date Seen: Jun 17, [address] Douglas Reason for Consultation Tachycardia History of Present Illness 89-year-old lady with a history of cardiac issues has developed tachycardia while in the office and was admitted directly to the hospital for junctional tachycardia. She does have history of diabetes hypertension and multiple medical problems which cardiac evaluation was requested. She does have a hist ory of paroxysmal atrial fibrillation. 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 History of hypothyroidism. Diabetes hypertension. Paroxysmal atrial tachycardia / atrial fibrillation. Chronic kidney disease. History of previous echocardiogram showing normal LV function. Past Surgical History History of subdural hematoma. Hypertension. Family History: Cardiovascular disease G8 MOTHER G8 FATHER FH: pancreatic cancer G8 MOTHER Allergies: Coded Allergies: Insulin, Regular (Pork) (Verified Allergy, Unknown, HIVES, 05/30/23) Home Meds Reported Medications Glipizide (Glipizide) 5 Mg Tab, 2.5 MG PO BID for 30 Days, MG 05/29/23 Irbesartan (IRBESARTAN) 300 Mg Tab, 150 MG PO DAILY, TAB 05/29/23 Metoprolol Tartrate (Metoprolol Tartrate) 25 Mg Tab, 25 MG PO BID for 30 Days, MG 05/29/23 Levothyroxine Sodium (Synthroid) 75 Mcg Tab, 1 TAB PO DAILY, #30 TAB 5 Refills 05/29/23 Levetiracetam (KEPPRA TABLET) 500 Mg Tb, 250 MG PO BID, TAB 05/29/23 Metformin Hydrochloride (Metformin Hcl) 500 Mg Tab, 1 TAB PO BID 11/01/22 Current Medications Current Medications Medications (Trade) Dose Ordered Sig/Keri Route PRN Reason Start Time Stop Time Status Last Admin Sodium Chloride (Saline Lock Ns) 10 ml Q8HR IV 06/17/24 22:00 Lorazepam (Ativan Tablet) 0.5 mg Q6HP PRN PO ANXIETY 06/17/24 17:45 Al Hydrox/Mg Hydrox/Simethicone (Maalox Plus) 30 ml Q6HP PRN PO FOR STOMACH DISTRESS 06/17/24 17:45 Acetaminophen (Tylenol Tablet) 650 mg Q6HP PRN PO PAIN SCALE 1-3 OR TEMP>100.4 06/17/24 17:45 Acetaminophen/ Hydrocodone Bitart ([place] 5/325MG Tab) 1 tab Q4HP PRN PO MODERATE PAIN (4-6 PAIN SCALE) 06/17/24 17:45 Ondansetron HCl (Zofran) 4 mg Q4HP PRN IV NAUSEA / VOMITING 06/17/24 17:45 Morphine Sulfate 2 mg Q4HPRN PRN IV SEVERE PAIN (7-10 PAIN SCALE) 06/17/24 17:45 Enoxaparin Sodium (Lovenox) 40 mg DAILY SC 06/18/24 10:00 UNV Nitroglycerin (Ntrostat Sublingual) 0.4 mg Q5MINP PRN SL FOR CHEST PAIN 06/17/24 17:45 Morphine Sulfate 2 mg Q30M PRN IV FOR CHEST PAIN 06/17/24 17:45 Review of Systems Review of systems from a constitutional standpoint otherwise negative. No fevers chills or weight loss. Cardiac and respiratory as noted above. Neurologically as noted above with a history of subdural hematoma. cardiac and respiratory as noted. GI musculoskeletal endocrine hematologic oncologic negative. Vital Signs Vital Signs Date Time Temp Pulse Resp B/P (MAP) Pulse Ox O2 Delivery O2 Flow Rate FiO2 06/17/24 18:21 97.8 127 18 149/89 (109) 95 97.8 06/17/24 18:21 Room Air* 0 21 Physical Exam Vital signs are as noted. HEENT examination is otherwise unremarkable. She is thin. Mild bitemporal wasting. No carotid bruits. Lungs reveal good air entry. Heart exam reveals tachycardic at around 1:20 a.m.. Junctional tachycardia noted by monitor.. Abdominal examination is unremarkable. Extremities reveal adequate perfusion without clubbing cyanosis no edema. Neurologically intact. Integumentary is normal. Neurologically intact Labs/Diagnostic Data Labs Test 06/17/24 18:41 06/17/24 17:49 Range/Units POC Glucose 82 70-106 mg/dl Assessment Chronic kidney disease. hypothyroidism. Hypertension. Diabetes mellitus. Atrial dysrhythmias. History of subdural hematoma secondary to fall. Paroxysmal atrial fibrillation history. Plan/Recommendation We will initiate Cardizem IV and p.o.. Repeat EKG and echocardiogram. Plan discussed with: Patient Date of Service: Jun 17, 2024 Billing Provider: PHILLY DAVIDSON Sr., MD Cardiology Common Codes: [id number] INP/OBS CARE (High) PHILLY DAVIDSON Sr., MD Jun 17, 2024 19:36
[2024-06-17 19:45] VITALS: PULSE 126; RESP 16; O2SAT 95
[2024-06-17 19:50] LABS: Basophils # (auto) 0.1 10 ^3/uL (0-0.2); Eosinophils # (auto) 0.4 10 ^3/uL (0-0.8); Eosinophils % (auto) 6.2 % (0.0-7.0); Hematocrit 38.7 % (36.0-46.0); Hemoglobin 13.2 g/dL (12.2-16.2); Lymphocytes # (auto) 1.6 10 ^3/uL (0.4-5.4); Lymphocytes % (auto) 25.1 % (10.0-50.0); Mean Corpuscular Hemoglobin 34.4 pg (28.0-32.0); Monocytes % (auto) 16.2 % (0.0-12.0); Neutrophils # (auto) 3.2 10 ^3/uL (1.6-8.6); Neutrophils % (auto) 51.5 % (37.0-80.0); Platelet Count (auto) 190 10^3/uL (140-450); Red Blood Cells 3.83 10^6/uL (4.0-5.20); Red Cell Distribution Width 13.6 % (11.8-14.3); White Blood Cell 6.2 10^3/uL (4.4-10.8)
[2024-06-17 20:02] LABS: Alanine Aminotransferase 23 U/L (7-40); Alkaline Phosphatase 101 U/L (46-116); Anion Gap 6 (5-15); Aspartate Aminotransferase 20 U/L (13-40); Blood Urea Nitrogen 21 mg/dL (9-23); Carbon Dioxide 29 mmol/L (20-31); Glucose 85 mg/dL (74-106); Magnesium 2.1 mg/dL (1.6-2.6); Potassium 4.4 mmol/L (3.5-5.1); Sodium 142 mmol/L (136-145)
[2024-06-17 20:03] LABS: Albumin 4.2 g/dL (3.2-4.8); Bilirubin, Total 0.9 mg/dL (0.2-1.0); Calcium 10.7 mg/dL (8.7-10.4); Chloride 107 mmol/L (98-107); Total Protein 6.8 g/dL (5.7-8.2)
[2024-06-17 21:00] VITALS: BP 178/91; PULSE 120; RESP 15; TEMP 98; O2SAT 96
[2024-06-17] MEDS: SODIUM CHLOR 0.9% PF (SALINE LOCK) 10ML VIAL/SYR IV SCH (21:04)
[2024-06-17 22:12] VITALS: BP 178/91; PULSE 110; PULSE 120; RESP 15; TEMP 98; O2SAT 96
[2024-06-17] MEDS: dilTIAZem 25 MG/5 ML VIAL IV ONE (23:27)
[2024-06-18] VITALS (9 sets, daily range): BP systolic 126–154; BP diastolic 57–92; PULSE 81–128; RESP 14–18; TEMP 98–101.3; O2SAT 91–96
--- NOTE | 2024-06-18 08:39 | DVHHP2 ---
History of Present Illness Reason for Visit: Tachycardia History of Present Illness Patient is a 89 year-old F with a PMHx of DM2, Hypertension, h/o Subdural Hematoma, CKD3b who presented to the clinic yesterday palpitations and shortness of breath. EKG was done which showed Junctional Tachycardia. Cardiology was consulted who recommended patient be admitted to the hospital for further workup and care. Patient reports her symptoms started few hours prior to presentation. No chest pain. Patient was previously on Eliquis but discontinued due to Subdural Hematoma due to a Mechanical Fall. Past Medical History See HPI Review of Systems Constitutional: No: Fever, Chills, Sweats, Weakness, Malaise, Other Eyes: No: Pain, Vision change, Conjunctivae inflammation, Eyelid inflammation, Other, Redness ENT: No: Ear pain, Ear discharge, Nose pain, Nose discharge, Nose congestion, Mouth pain, Mouth swelling, Throat pain, Throat swelling, Other Respiratory: No: Cough, Dry, Shortness of breath, SOB with excertion, Wheezing, Hemoptysis, Pleuritic Pain, Sputum, Wheezing, Other Cardiovascular: Palpitations, Orthopnea Gastrointestinal: No: Nausea, Vomiting, Abdominal Pain, Diarrhea, Constipation, Melena, Hematochezia, Other Genitourinary: No Dysuria, No Frequency, No Incontinence, No Hematuria, No Retention, No Other Musculoskeletal: No: other, neck pain, shoulder pain, arm pain, back pain, hand pain, leg pain, foot pain Skin: No: Rash, Lesions, Jaundice, Bruising, Other Neurological: No: Weakness, Numbness, Incoordination, Change in speech, Confusion, Seizures, Other Allergies: Coded Allergies: Insulin, Regular (Pork) (Verified Allergy, Unknown, HIVES, 05/30/23) Medications Current Medications Medications Dose Ordered Sig/Keri Route Start Time Stop Time Status Last Admin Dose Admin Sodium Chloride 10 ml Q8HR IV 06/17/24 22:00 06/18/24 05:04 10 ML Lorazepam 0.5 mg Q6HP PRN PO 06/17/24 17:45 Al Hydrox/Mg Hydrox/Simethicone 30 ml Q6HP PRN PO 06/17/24 17:45 Acetaminophen 650 mg Q6HP PRN PO 06/17/24 17:45 Acetaminophen/ Hydrocodone Bitart 1 tab Q4HP PRN PO 06/17/24 17:45 Ondansetron HCl 4 mg Q4HP PRN IV 06/17/24 17:45 Morphine Sulfate 2 mg Q4HPRN PRN IV 06/17/24 17:45 Enoxaparin Sodium 40 mg DAILY SC 06/18/24 10:00 UNV Nitroglycerin 0.4 mg Q5MINP PRN SL 06/17/24 17:45 Morphine Sulfate 2 mg Q30M PRN IV 06/17/24 17:45 Diltiazem HCl 240 mg DAILY PO 06/18/24 10:00 Exam Vital Signs Vital Signs Date Time Temp Pulse Resp B/P (MAP) Pulse Ox O2 Delivery O2 Flow Rate FiO2 06/18/24 08:23 98.7 128 17 145/84 (104) 91 98.7 06/17/24 19:45 Room Air* 0 21 Exam Gen: in bed NAD Cvs: Tachycardia Resp: BLAE Abd: Soft, NT, BS+ Echo Vasc Tech: AAO x 4 Labs/Xrays Labs Test 06/17/24 18:41 06/17/24 17:49 Range/Units White Blood Count 6.2 4.4-10.8 10^3/uL Red Blood Count 3.83 L 4.0-5.20 10^6/uL Hemoglobin 13.2 12.2-16.2 g/dL Hematocrit 38.7 36.0-46.0 % Mean Corpuscular Volume 101.0 H 80.0-100.0 fL Mean Corpuscular Hemoglobin 34.4 H 28.0-32.0 pg Mean Corpuscular Hemoglobin Concent 34.0 32.0-36.0 g/dL Red Cell Distribution Width 13.6 11.8-14.3 % Platelet Count 190 140-450 10^3/uL Mean Platelet Volume 9.1 6.9-10.8 fL Neutrophils (%) (Auto) 51.5 37.0-80.0 % Lymphocytes (%) (Auto) 25.1 10.0-50.0 % Monocytes (%) (Auto) 16.2 H 0.0-12.0 % Eosinophils (%) (Auto) 6.2 0.0-7.0 % Basophils (%) (Auto) 1.0 0.0-2.0 % Neutrophils # (Auto) 3.2 1.6-8.6 10 ^3/uL Lymphocytes # (Auto) 1.6 0.4-5.4 10 ^3/uL Monocytes # (Auto) 1.0 0-1.3 10 ^3/uL Eosinophils # (Auto) 0.4 0-0.8 10 ^3/uL Basophils # (Auto) 0.1 0-0.2 10 ^3/uL Nucleated Red Blood Cells 0.0 % Sodium Level 142 136-145 mmol/L Potassium Level 4.4 3.5-5.1 mmol/L Chloride Level 107 98-107 mmol/L Carbon Dioxide Level 29 20-31 mmol/L Anion Gap 6 5-15 Blood Urea Nitrogen 21 9-23 mg/dL Creatinine 1.61 H 0.550-1.02 mg/dL Glomerular Filtration Rate Calc 30 >90 mL/min BUN/Creatinine Ratio 13.0 10.0-20.0 Serum Glucose 85 74-106 mg/dL Calcium Level 10.7 H 8.7-10.4 mg/dL Magnesium Level 2.1 1.6-2.6 mg/dL Total Bilirubin 0.9 0.2-1.0 mg/dL Aspartate Amino Transferase (AST) 20 13-40 U/L Alanine Aminotransferase (ALT) 23 7-40 U/L Alkaline Phosphatase 101 46-116 U/L Total Protein 6.8 5.7-8.2 g/dL Albumin 4.2 3.2-4.8 g/dL Thyroid Stimulating Hormone (TSH) 0.47 L 0.55-4.78 uIU/mL POC Glucose 82 70-106 mg/dl Assessment/Plan Assessment/Plan # Junctional Tachycardia - Cardio Cx - Cardizem IV - ECHO # Pulm Edema - Lasix # DM2 A1c 6.5 - Monitor blood sugars - Will start Insulin if needed # CKD3b - Monitor renal function # Hypertensive Heart Disease w/ chronic diastolic CHF - Monitor and start meds if needed # Goals of care >18 mins FULL CODE Plan discussed with: Patient My Orders Orders - JAMES DANIELS MD Procedure Category Date Status Time Admit ADMIT 06/17/24 Transmitted 17:38 Code Status CODE 06/17/24 Transmitted 17:38 Vital Signs MIRANDA 06/17/24 In Process 17:38 Review Orders With MIRANDA 06/17/24 In Process Adm. 17:38 Consistent DIET 06/17/24 Transmitted Carb(Ccho)Diabetes Dinner Sodium Chloride Lock PHA 06/17/24 In Process (Saline Lock Ns) 22:00 Lorazepam Tablet PHA 06/17/24 In Process (Ativan Tablet) 17:45 Alum & Mag PHA 06/17/24 In Process Hydrox-Simethicone 17:45 Acetaminophen Tablet PHA 06/17/24 In Process (Tylenol Tablet) 17:45 Notify Md Of Changes [facility] 06/17/24 In Process From Base 17:38 Advance Directive MIRANDA 06/17/24 In Process 17:38 Patient Condition ORDERS 06/17/24 Transmitted 17:38 Allergies MIRANDA 06/17/24 In Process 17:38 Hydrocodone-Acet PHA 06/17/24 In Process 5/325mg Tab ([place] 17:45 Ondansetron Hcl PHA 06/17/24 In Process (Zofran) 17:45 Morphine Sulfate PHA 06/17/24 In Process Injection 17:45 Enoxaparin Sodium PHA 06/18/24 Pending (Lovenox) 10:00 Nitroglycerin PHA 06/17/24 In Process Sublingual (Ntrostat 17:45 Morphine Sulfate PHA 06/17/24 In Process Injection 17:45 Stat Ekg For Chest [facility] 06/17/24 In Process Pain 17:38 Notify Md Of Changes [facility] 06/17/24 In Process From Base 17:38 Talent Manager For [facility] 06/17/24 In Process 24 Hours 17:38 Emergency Dysrhythmia [facility] 06/17/24 In Process Protocol 17:38 Rhythm Strips Once [facility] 06/17/24 In Process Every Shift 17:38 Oxygen By Nasal RT 06/17/24 Transmitted Cannula 17:38 Urinalysis LAB 06/17/24 Logged 17:38 * Cardiology Consult CONS 06/17/24 Transmitted 18:03 Check Blood Glucos [facility] 06/17/24 In Process Befor Meals 18:03 Echo 2d Mode Cardiac US 06/18/24 Logged DOP 17:38 Basic Metabolic Panel LAB 06/18/24 Transmitted 08:30 Hemoglobin A1c LAB 06/18/24 Transmitted 08:30 Urinalysis LAB 06/18/24 Transmitted 08:30 Date of Service: Jun 18, 2024 Billing Provider: JAMES DANIELS MD Common Visit Codes: [id number] INP/OBS CARE (HIGH) Secondary Visit Codes: [id number] CARE PLAN 30 MINUTES JAMES DANIELS MD Jun 18, 2024 08:39
[2024-06-18] MEDS: dilTIAZem 120MG ER CAP PO SCH (09:02)
[2024-06-18] MEDS: dilTIAZem 25 MG/5 ML VIAL IV ONE ×3 (09:14→10:15)
[2024-06-18] MEDS ORDERED: dilTIAZem 120MG ER CAP PO SCH (10:00)
[2024-06-18] MEDS ORDERED: ENOXAPARIN SOD 30 MG/0.3 ML SYRINGE SC SCH (10:00)
[2024-06-18 10:17] LABS: Anion Gap 7 (5-15); Carbon Dioxide 27 mmol/L (20-31); Chloride 106 mmol/L (98-107); Potassium 4.3 mmol/L (3.5-5.1); Sodium 140 mmol/L (136-145)
[2024-06-18 10:23] LABS: BUN/Creatinine Ratio 12.2 (10.0-20.0); Blood Urea Nitrogen 21 mg/dL (9-23); Triglycerides 84 mg/dL (< 150)
[2024-06-18 10:24] LABS: LDL Cholesterol 76 mg/dL (< 100)
[2024-06-18 10:25] LABS: Cholesterol 138 mg/dL (< 200); HDL Cholesterol 42 mg/dL (40-59)
[2024-06-18 10:40] LABS: Calcium 10.6 mg/dL (8.7-10.4); Glucose 258 mg/dL (74-106)
[2024-06-18] MEDS: DIGOXIN 0.125 MG TAB PO ONE (11:08)
--- NOTE | 2024-06-18 12:03 | DVH ---
XY CHEST TWO VIEWS ROUTINE CLINICAL HISTORY: PNA COMPARISON: XY CHEST TWO VIEWS ROUTINE on DOS: 11/01/22, XY CHEST PORTABLE on DOS: 05/29/23 TECHNIQUE: Frontal view of the chest. FINDINGS: There is probable effusion in the right lung base. Heart size is borderline. There are prominent interstitial markings probably chronic in nature. IMPRESSION: 1. Possible effusion right lung base. Follow-up PA and lateral would be helpful
--- NOTE | 2024-06-18 13:57 | DVHSR ---
APPROVED REPORT EXAM: Two-dimensional and M-mode echocardiogram with Doppler and color Doppler. Blood Pressure: 141/79 mmHg INDICATION Tachycardia RISK FACTORS Height: 5'1", Weight: 129 DIMENSIONS LVDd3.6 (3.8-5.7cm)LA (2D)3.7 (1.9-4.0cm)Aortic Root2.8 (2.0-3.7cm) LVDs2.4 (2.5-4.0cm)LA (MM) (1.9-4.0cm)Aortic Cusp Exc1.2 (1.5-2.0cm) EF (%) 63.0 (55-70%)Rt. Atrium3.9 (1.9-4.0cm)Asc. Aorta3.1 cm IVSd1.1 (0.7-1.1cm)RV (D) (1.8-2.4cm) PWd1.0 (0.7-1.1cm) Mitral Valve MitralMitral Stenosis E wave1.14m/sMV Mean GR.mmHg E/A ratio0.02D MVAcm2 Aortic Valve Aortic ValveAortic Stenosis V10.71m/Vinnie Mean GR.3mmHg V21.02m/Vinnie Peak GR.4mmHg LVOT Diameter1.8 (1.8-2.4cm)Doppler AVA1.77cm2 Pulmonic Valve V20.58m/s Conclusion Normal left ventricular size and dimension. Normal left ventricular systolic function estimated ejec tion fraction 60%. Could not assess diastolic function due to tachycardia. Normal right ventricular size and dimension. Normal left ventricular systolic function. Moderately dilated right and left atria. Aortic valve is thickened and sclerotic no significant stenosis or regurgitation. There is [id number] mitral valve regurgitation. There is moderate tricuspid valve regurgitation. Pulmonary valve is grossly normal. No pericardial effusion.
--- NOTE | 2024-06-18 16:46 | DVHPN2 ---
Consult Progress Note Date Seen: Jun 18, 2024 Subjective Patient reports: No new complaints, Feels better Review of Systems: HEENT:Normal, CVS:Abnormal, RESPIRATORY:Normal, GI:Normal, :Normal, :Abnormal Objective vital signs Vital Sign Date Time Temp Pulse Resp B/P (MAP) Pulse Ox O2 Delivery O2 Flow Rate FiO2 06/18/24 11:51 98.3 116 18 126/79 (95) 95 98.3 06/18/24 08:00 Room Air* 0 21 Total Intake and Output 06/17/24 06/17/24 06/18/24 15:00 23:00 07:00 Intake Total 0 ml 440 ml Output Total 1200 ml Balance 0 ml -760 ml medications Current Medications Medications Dose Ordered Sig/Keri Route Start Time Stop Time Status Last Admin Dose Admin Sodium Chloride 10 ml Q8HR IV 06/17/24 22:00 06/18/24 05:04 10 ML Lorazepam 0.5 mg Q6HP PRN PO 06/17/24 17:45 Al Hydrox/Mg Hydrox/Simethicone 30 ml Q6HP PRN PO 06/17/24 17:45 Acetaminophen 650 mg Q6HP PRN PO 06/17/24 17:45 Acetaminophen/ Hydrocodone Bitart 1 tab Q4HP PRN PO 06/17/24 17:45 Ondansetron HCl 4 mg Q4HP PRN IV 06/17/24 17:45 Morphine Sulfate 2 mg Q4HPRN PRN IV 06/17/24 17:45 Enoxaparin Sodium 30 mg DAILY SC 06/18/24 10:00 Hold Nitroglycerin 0.4 mg Q5MINP PRN SL 06/17/24 17:45 Morphine Sulfate 2 mg Q30M PRN IV 06/17/24 17:45 Diltiazem HCl 240 mg DAILY PO 06/18/24 10:00 06/18/24 09:02 240 MG Digoxin 0.125 mg DAILY PO 06/19/24 10:00 Examination: GENERAL:Normal, HEENT:Normal, NECK:Normal, LUNGS:Normal, CVS:Abnormal (Patient now with controlled rate of 80 still in AFib.), ABDOMEN:Normal, MSK:Normal, SKIN:Normal, NEURO:Normal, :Normal laboratory and microbiology Laboratory Tests 06/18/24 09:06 12/18/24 18:41 Test 06/18/24 09:06 Range/Units Serum Glucose 258 H 74-106 mg/dL Problem List/Assessment/Plan Problem List/Assessment/Plan Atrial fibrillation. history of intracranial bleed. Recent stroke. Diabetes. Hypertension. Plan discussed with: Patient, Spouse Date of Service: Jun 18, 2024 Billing Provider: PHILLY DAVIDSON Sr., MD Cardiology Common Codes: [id number] [facility] CARE(High PHILLY DAVIDSON Sr., MD Jun 18, 2024 16:46
--- NOTE | 2024-06-18 17:13 | DVH ---
Chest Sonogram Date: 06/18/2024 Clinical history: Right Effusion Technique: Grayscale imaging of the chest to evaluate for pleural effusion. Comparison: Chest radiograph obtained earlier the same day. Findings and impression: Small right pleural effusion is noted. No sizable left pleural effusion.
[2024-06-18] MEDS: FUROSEMIDE 20 MG/2 ML VIAL IV ONE (18:54)
[2024-06-19] VITALS (8 sets, daily range): BP systolic 116–159; BP diastolic 62–88; PULSE 62–130; RESP 15–20; TEMP 97.5–98.7; O2SAT 95–100
[2024-06-19] MEDS: LORazepam 0.5 MG TAB PO PRN (10:46)
[2024-06-19] MEDS: DIGOXIN 0.125 MG TAB PO SCH (10:47)
[2024-06-19] MEDS: FUROSEMIDE 20 MG/2 ML VIAL IV SCH (11:03)
[2024-06-19] MEDS: dilTIAZem 120MG ER CAP PO ONE (11:51)
[2024-06-19] MEDS: METOPROLOL TARTRATE 1MG/1ML-5ML VIAL IV ONE (11:52)
--- NOTE | 2024-06-19 13:52 | DVHPN2 ---
Subjective Seen and examined at bedside, patient continue to be tachycardic. Will adjust meds and monitor. Changes from previous H/P or p: Changes Eyes: No Pain, No Vision change, No Conjunctivae inflammation, No Eyelid inflammation, No Other, No Redness ENT: No Ear pain, No Ear discharge, No Nose pain, No Nose discharge, No Nose congestion, No Mouth pain, No Mouth swelling, No Throat pain, No Throat swelling, No Other Cardiovascular: Palpitations Respiratory: No Cough, No Dry, No Shortness of breath, No SOB with excertion, No Wheezing, No Hemoptysis, No Pleuritic Pain, No Sputum, No Other Gastrointestinal: No Nausea, No Vomiting, No Abdominal Pain, No Diarrhea, No Constipation, No Melena, No Hematochezia, No Other Genitourinary: No Dysuria, No Frequency, No Incontinence, No Hematuria, No Retention, No Other Musculoskeletal: No other, No neck pain, No shoulder pain, No arm pain, No back pain, No hand pain, No leg pain, No foot pain Skin: No Rash, No Lesions, No Jaundice, No Bruising, No Other Objective Vitals Vital Signs Date Time Temp Pulse Resp B/P (MAP) Pulse Ox O2 Delivery O2 Flow Rate FiO2 06/19/24 12:33 97.6 130 18 121/88 (99) 100 97.6 06/18/24 20:00 Room Air* 0 21 Intake/Output Intake and Output 06/19/24 07:00 Intake Total 740 ml Output Total 1020 ml Balance -280 ml Intake Oral 740 ml Output Urine Total 1020 ml # Bowel Movements 1 Exam Gen: in bed NAD Cvs: Tachycardic Resp: Few creps Abd: Soft, NT Mold Carpenter: AAO x 4 Medications Current Medications Medications Dose Ordered Sig/Keri Route Start Time Stop Time Status Last Admin Dose Admin Sodium Chloride 10 ml Q8HR IV 06/17/24 22:00 06/18/24 14:00 10 ML Lorazepam 0.5 mg Q6HP PRN PO 06/17/24 17:45 06/19/24 10:46 0.5 MG Al Hydrox/Mg Hydrox/Simethicone 30 ml Q6HP PRN PO 06/17/24 17:45 Acetaminophen 650 mg Q6HP PRN PO 06/17/24 17:45 Acetaminophen/ Hydrocodone Bitart 1 tab Q4HP PRN PO 06/17/24 17:45 Ondansetron HCl 4 mg Q4HP PRN IV 06/17/24 17:45 Morphine Sulfate 2 mg Q4HPRN PRN IV 06/17/24 17:45 Enoxaparin Sodium 30 mg DAILY SC 06/18/24 10:00 Hold Nitroglycerin 0.4 mg Q5MINP PRN SL 06/17/24 17:45 Morphine Sulfate 2 mg Q30M PRN IV 06/17/24 17:45 Diltiazem HCl 240 mg DAILY PO 06/18/24 10:00 06/19/24 10:48 240 MG Digoxin 0.125 mg DAILY PO 06/19/24 10:00 06/19/24 10:47 0.125 MG Furosemide 20 mg DAILY IV 06/19/24 10:00 06/19/24 11:03 20 MG Laboratory Results Laboratory Tests 06/17/24 18:41 06/18/24 09:06 Assessment/Plan Assessment/Plan # Junctional Tachycardia now A-Fibb - Cardio Cx - Cardizem PO increase + Metoprolol IV - ECHO noted # Pulm Edema - Lasix # DM2 A1c 6.5 - Monitor blood sugars - Will start Insulin if needed # CKD3b - Monitor renal function # Hypertensive Heart Disease w/ chronic diastolic CHF - Monitor and adjust meds if needed # Goals of care >18 mins FULL CODE Plan discussed with: Patient My Orders Orders - JAMES DANIELS MD Procedure Category Date Status Time Furosemide Injection PHA 06/19/24 In Process (Lasix Injection) 10:00 Chest Ultrasound US 06/18/24 Resulted 16:32 Straight Cath Patient ORDERS 06/19/24 Transmitted 13:46 Basic Metabolic Panel LAB 06/20/24 Verified 04:00 Magnesium LAB 06/20/24 Verified 04:00 B-Type Natriuretic LAB 06/20/24 Verified Peptide 04:00 Date of Service: Jun 19, 2024 Billing Provider: JAMES DANIELS MD Common Visit Codes: [id number] INP/OBS CARE(HIGH) JAMES DANIELS MD Jun 19, 2024 13:52
[2024-06-19] MEDS: AMIODARONE HCL 200 MG TAB PO SCH (21:57)
[2024-06-19 22:10] LABS: COVID19 ANTIGEN SOFIA FIA NEGATIVE (NEGATIVE)
[2024-06-19 22:13] LABS: Rapid Influenza A Negative (Negative); Rapid Influenza B Negative (Negative)
[2024-06-20 05:34] VITALS: BP 132/58; PULSE 88; RESP 17; TEMP 98; O2SAT 95
[2024-06-20 07:25] LABS: Chloride 106 mmol/L (98-107); Potassium 4.3 mmol/L (3.5-5.1); Sodium 140 mmol/L (136-145)
[2024-06-20 07:26] LABS: Anion Gap 8 (5-15); Carbon Dioxide 26 mmol/L (20-31)
[2024-06-20 07:32] LABS: BUN/Creatinine Ratio 17.5 (10.0-20.0); Magnesium 1.9 mg/dL (1.6-2.6)
[2024-06-20 07:34] LABS: Blood Urea Nitrogen 36 mg/dL (9-23); Calcium 10.4 mg/dL (8.7-10.4); Glucose 167 mg/dL (74-106)
[2024-06-20 08:00] VITALS: PULSE 115; PULSE 130; PULSE 85; RESP 18; O2SAT 95
[2024-06-20 08:47] VITALS: BP 123/66; PULSE 65; RESP 17; TEMP 97.7; O2SAT 96
[2024-06-20 13:00] VITALS: BP 104/71; PULSE 85; RESP 17; TEMP 98.4; O2SAT 97
[2024-06-20] MEDS ORDERED: DIGO1TAB48 PO (13:06)
[2024-06-20] MEDS ORDERED: ASPI-543 PO (13:06)
[2024-06-20] MEDS ORDERED: DILT-29 PO (13:06)
[2024-06-20] MEDS ORDERED: AMIO200T13 PO (13:06)
--- NOTE | 2024-06-20 13:11 | DVHDS2 ---
Discharge Summary Date of Admission Jun 17, 2024 at 14:58 Date of Discharge: Jun 20, 2024 Admitting Diagnosis Junctional Tachycardia now A-Fibb Labs/Diagnostic Data: Laboratory Results Test 06/20/24 12:50 06/20/24 06:37 06/18/24 20:30 06/18/24 09:06 Sodium Level 140 mmol/L (136-145) Potassium Level 4.3 mmol/L (3.5-5.1) Chloride Level 106 mmol/L (98-107) Carbon Dioxide Level 26 mmol/L (20-31) Anion Gap 8 (5-15) Blood Urea Nitrogen 36 mg/dL (9-23) Creatinine 2.06 mg/dL (0.550-1.02) Glomerular Filtration Rate Calc 23 mL/min (>90) BUN/Creatinine Ratio 17.5 (10.0-20.0) Serum Glucose 167 mg/dL (74-106) Calcium Level 10.4 mg/dL (8.7-10.4) Magnesium Level 1.9 mg/dL (1.6-2.6) B-Type Natriuretic Peptide 66.47 pg/mL (0-100) Influenza Type A Antigen Negative (Negative) Influenza Type B Antigen Negative (Negative) SARS-CoV-2 Antigen (Rapid) Negative (NEGATIVE) Triglycerides Level 84 mg/dL (< 150) Cholesterol Level 138 mg/dL (< 200) LDL Cholesterol 76 mg/dL (< 100) HDL Cholesterol 42 mg/dL (40-59) Test 06/18/24 09:00 06/17/24 18:41 06/17/24 17:49 Hemoglobin A1c 7.0 % A1C (<5.7) White Blood Count 6.2 10^3/uL (4.4-10.8) Red Blood Count 3.83 10^6/uL (4.0-5.20) Hemoglobin 13.2 g/dL (12.2-16.2) Hematocrit 38.7 % (36.0-46.0) Mean Corpuscular Volume 101.0 fL (80.0-100.0) Mean Corpuscular Hemoglobin 34.4 pg (28.0-32.0) Mean Corpuscular Hemoglobin Concent 34.0 g/dL (32.0-36.0) Red Cell Distribution Width 13.6 % (11.8-14.3) Platelet Count 190 10^3/uL (140-450) Mean Platelet Volume 9.1 fL (6.9-10.8) Neutrophils (%) (Auto) 51.5 % (37.0-80.0) Lymphocytes (%) (Auto) 25.1 % (10.0-50.0) Monocytes (%) (Auto) 16.2 % (0.0-12.0) Eosinophils (%) (Auto) 6.2 % (0.0-7.0) Basophils (%) (Auto) 1.0 % (0.0-2.0) Neutrophils # (Auto) 3.2 10 ^3/uL (1.6-8.6) Lymphocytes # (Auto) 1.6 10 ^3/uL (0.4-5.4) Monocytes # (Auto) 1.0 10 ^3/uL (0-1.3) Eosinophils # (Auto) 0.4 10 ^3/uL (0-0.8) Basophils # (Auto) 0.1 10 ^3/uL (0-0.2) Nucleated Red Blood Cells 0.0 % Total Bilirubin 0.9 mg/dL (0.2-1.0) Aspartate Amino Transferase (AST) 20 U/L (13-40) Alanine Aminotransferase (ALT) 23 U/L (7-40) Alkaline Phosphatase 101 U/L (46-116) Total Protein 6.8 g/dL (5.7-8.2) Albumin 4.2 g/dL (3.2-4.8) Thyroid Stimulating Hormone (TSH) 0.47 uIU/mL (0.55-4.78) POC Glucose 82 mg/dl (70-106) Other Laboratory Tests 06/20/24 06:37 06/17/24 18:41 Brief Hx & Hospital Course: Patient is a 89 year-old F with a PMHx of DM2, Hypertension, h/o Subdural Hematoma, CKD3b who presented to the clinic yesterday palpitations and shortness of breath. EKG was done which showed Junctional Tachycardia. Cardiology was consulted who recommended patient be admitted to the hospital for further workup and care. Patient reports her symptoms started few hours prior to presentation. No chest pain. Patient was previously on Eliquis but discontinued due to Subdural Hematoma due to a Mechanical Fall. Patient was seen in cardiology consult, started on Digoxin. HR better controlled. Patient wishes to be discharged home. Patient will see me on Saturday and we will repeat labs to monitor renal function and digoxin level. Operations or Procedures EXAM: Two-dimensional and M-mode echocardiogram with Doppler and color Doppler. Blood Pressure: 141/79 mmHg INDICATION Tachycardia RISK FACTORS Height: 5'1", Weight: 129 DIMENSIONS LVDd 3.6 (3.8-5.7cm) LA (2D) 3.7 (1.9-4.0cm) Aortic Root 2.8 (2.0- 3.7cm) LVDs 2.4 (2.5-4.0cm) LA (MM) (1.9-4.0cm) Aortic Cusp Exc 1.2 (1.5- 2.0cm) EF (%) 63.0 (55-70%) Rt. Atrium 3.9 (1.9-4.0cm) Asc. Aorta 3.1 cm IVSd 1.1 (0.7-1.1cm) RV (D) (1.8-2.4cm) PWd 1.0 (0.7-1.1cm) Mitral Valve Mitral Mitral Stenosis E wave 1.14m/s MV Mean GR. mmHg E/A ratio 0.0 2D MVA cm2 Aortic Valve Aortic Valve Aortic Stenosis V1 0.71m/s AO Mean GR. 3mmHg V2 1.02m/s AO Peak GR. 4mmHg LVOT Diameter 1.8 (1.8-2.4cm) Doppler EZRA 1.77cm2 Pulmonic Valve V2 0.58m/s Conclusion Normal left ventricular size and dimension. Normal left ventricular systolic function estimated ejection fraction 60%. Could not assess diastolic function due to tachycardia. Normal right ventricular size and dimension. Normal left ventricular systolic function. Moderately dilated right and left atria. Aortic valve is thickened and sclerotic no significant stenosis or regurgitation. There is soiu-st-kngyyppk mitral valve regurgitation. There is moderate tricuspid valve regurgitation. Pulmonary valve is grossly normal. No pericardial effusion. Condition at Discharge: Stable Final Diagnosis/Problems List # Junctional Tachycardia now A-Fibb # Pulm Edema # DM2 A1c 6.5 - Monitor blood sugars - Will start Insulin if needed # CKD3b - Monitor renal function # Hypertensive Heart Disease w/ chronic diastolic CHF - Monitor and adjust meds if needed # Goals of care >18 mins FULL CODE Discharge Disposition: Home Discharge Instruct/Medications Diet: Regular Activity: Light activity Follow Up/Referral: Dr. Douglas on Saturday [facility] Dis[facility] Statement: "Patient was advised to return to the ER or call 911 if any headaches, dizziness, shortness of breath, chest pain, abdominal pain, bleeding, fevers, or worsening of medical condition. Patient was counseled about treatment plan, medications, possible side effects, patientverbalized understanding. All questions were answered to the best of my ability. This discharge took greater then 30 minutes in planning, reviewing documentation, counseling the patient, and discussing with other team members." ASSESSMENT ASSESSMENT Assessment Date of Service: Jun 20, 2024 Billing Provider: JAMES DOUGLAS MD Common Visit Codes: 23830-RDY/OBS DISCH DAY >30min JAMES DOUGLAS MD Jun 20, 2024 13:11
[2024-06-20 13:59] LABS: Urine Bacteria FEW /hpf (None Seen); Urine Blood Negative /uL (Negative); Urine Clarity Clear (Clear); Urine Color Colorless (Yellow); Urine Protein, UAD Negative (Negative); Urine Specific Gravity 1.006 (1.001-1.035); Urine Urobilinogen Normal (Negative); Urine WBC 79 /hpf (0 - 5); Urine pH 5.5 (5.0-9.0)
[2024-06-20 14:14] VITALS: BP 121/62; PULSE 98; RESP 18; TEMP 36.9; O2SAT 96
--- NOTE | 2024-06-21 09:58 | ECG ---
[facility] Test Date: 2024-06-20 Test Time: 11:11:43 Pat Name: LUIGI ALDRIDGE Department: Room: 0235T A Gender: F Driver Manager: HOLLY : 1935 Requested By: JAMES DANIELS Order Number: [id number] Reading MD: Pema Lwoery Measurements Intervals [place] Rate: 83 P: 0 ME: 0 QRS: -23 QRSD: 84 T: 5 QT: 379 QTc: 446 Interpretive Statements Atrial flutter with predominant 3:1 AV block Probable left ventricular hypertrophy Electronically Signed On 06-22-2024 15:35:05 PST by Pema Lowery Please click the below link to view image of tracing.
== END 2024-06-20 16:23 | disposition home or self-care (01) | DRG 309 ==
LOC: TELE-E-ADS 14:58 → TELE-EAST 17:20
PROVIDERS: ADMIT Internal Medicine; ATTEND Internal Medicine
DX: I48.0 Paroxysmal atrial fibrillation (principal); I13.0 Hypertensive heart and chronic kidney disease with heart failure and stage 1 through stage 4 chronic kidney disease, or unspecified chronic kidney disease; I50.32 Chronic diastolic (congestive) heart failure; J81.1 Chronic pulmonary edema; I47.19 Other supraventricular tachycardia; E11.22 Type 2 diabetes mellitus with diabetic chronic kidney disease; Z20.822 Contact with and (suspected) exposure to COVID-19; E03.9 Hypothyroidism, unspecified; N18.32 Chronic kidney disease, stage 3b; Z88.8 Allergy status to other drugs, medicaments and biological substances; Z82.49 Family history of ischemic heart disease and other diseases of the circulatory system; Z80.0 Family history of malignant neoplasm of digestive organs; Z86.73 Personal history of transient ischemic attack (TIA), and cerebral infarction without residual deficits; Z79.84 Long term (current) use of oral hypoglycemic drugs; Z79.899 Other long term (current) drug therapy
CPT/HCPCS: 36415; 71046; 76604; 80048; 80053; 80061; 81001; 82962; 83036; 83735; 83880; 84443; 85025; 87426; 87804; 93005; 93306; G0378

== ENCOUNTER → 2024-07-03 | Outpatient (CLI) | payer MEDICARE, BC ==
[~2024-07-03] MED LIST changes: +AMIO200T13 PO; +ASPI-543 PO; +DIGO1TAB48 PO; +DILT-29 PO
[2024-07-03 12:12] LABS: Alanine Aminotransferase 13 U/L (7-40); Albumin 3.9 g/dL (3.2-4.8); Alkaline Phosphatase 108 U/L (46-116); Anion Gap 7 (5-15); BUN/Creatinine Ratio 17.2 (10.0-20.0); Bilirubin, Total 0.8 mg/dL (0.2-1.0); Carbon Dioxide 27 mmol/L (20-31); Sodium 142 mmol/L (136-145); Total Protein 6.3 g/dL (5.7-8.2)
[2024-07-03 12:22] LABS: Aspartate Aminotransferase 12 U/L (13-40); Blood Urea Nitrogen 32 mg/dL (9-23); Calcium 10.7 mg/dL (8.7-10.4); Chloride 108 mmol/L (98-107); Glucose 150 mg/dL (74-106)
== END | disposition home or self-care (01) ==
LOC: LAB 11:21
PROVIDERS: ATTEND Internal Medicine
DX: I47.19 Other supraventricular tachycardia (principal)
CPT/HCPCS: 36415; 80053; 80162

== ENCOUNTER → 2024-07-24 | Outpatient (CLI) | payer MEDICARE, BC ==
[2024-07-24 17:04] LABS: Alanine Aminotransferase 19 U/L (7-40); Albumin 4.3 g/dL (3.2-4.8); Alkaline Phosphatase 93 U/L (46-116); Anion Gap 6 (5-15); Aspartate Aminotransferase 15 U/L (13-40); BUN/Creatinine Ratio 28.9 (10.0-20.0); Carbon Dioxide 28 mmol/L (20-31); Chloride 104 mmol/L (98-107); Potassium 4.8 mmol/L (3.5-5.1); Sodium 138 mmol/L (136-145); Total Protein 6.6 g/dL (5.7-8.2)
[2024-07-24 17:16] LABS: Basophils # (auto) 0 10 ^3/uL (0-0.2); Basophils % (auto) 0.4 % (0.0-2.0); Eosinophils # (auto) 0.1 10 ^3/uL (0-0.8); Eosinophils % (auto) 1.8 % (0.0-7.0); Hematocrit 40.2 % (36.0-46.0); Hemoglobin 13.5 g/dL (12.2-16.2); Lymphocytes # (auto) 1.4 10 ^3/uL (0.4-5.4); Lymphocytes % (auto) 21.3 % (10.0-50.0); Mean Corpuscular Hemoglobin 33.4 pg (28.0-32.0); Mean Corpuscular Hgb Conc. 33.7 g/dL (32.0-36.0); Mean Corpuscular Volume 99.2 fL (80.0-100.0); Monocytes # (auto) 0.7 10 ^3/uL (0-1.3); Monocytes % (auto) 10.4 % (0.0-12.0); Neutrophils # (auto) 4.3 10 ^3/uL (1.6-8.6); Neutrophils % (auto) 66.1 % (37.0-80.0); Platelet Count (auto) 210 10^3/uL (140-450); Red Blood Cells 4.05 10^6/uL (4.0-5.20); Red Cell Distribution Width 13.2 % (11.8-14.3); White Blood Cell 6.5 10^3/uL (4.4-10.8)
[2024-07-24 17:17] LABS: Bilirubin, Total 0.2 mg/dL (0.2-1.0); Blood Urea Nitrogen 65 mg/dL (9-23); Calcium 10.9 mg/dL (8.7-10.4); Glucose 164 mg/dL (74-106)
== END | disposition home or self-care (01) ==
LOC: LAB 16:22
PROVIDERS: ATTEND Internal Medicine
DX: A40.9 Streptococcal sepsis, unspecified (principal); R19.8 Other specified symptoms and signs involving the digestive system and abdomen
CPT/HCPCS: 36415; 80053; 85025; 87177; 87493

== ENCOUNTER 2024-12-03 15:19 | Inpatient (IN) | payer MEDICARE, BC ==
[~2024-12-03] VITALS: Ht 154.9 cm; Wt 57.3 kg
[2024-12-03] MEDS: SODIUM CHLORIDE 0.9% 500 ML IVB ONE (15:45)
--- NOTE | 2024-12-03 15:48 | ED.PDOC ---
GI ASSESSMENT HPI Comments This is an 89 year old female presenting to the ED with chief complaint of diarrhea. Patient reports that while visiting her in the hospital today, she suddenly had diarrhea incontinence with associated generalized weakness. Patient relays that she was advised to come to the ED for further evaluation. Patient states her son had passed about 2 weeks ago and is going through a lot. Patient denies any nausea, vomiting, abdominal pain, fever, chills, melena, hematochezia, chest pain, or SOB. Time Seen by MD: 15:45 Primary Care Provider: LETY Reviewed Notes: Nurses Notes, Medications, Allergies Allergies: Coded Allergies: Insulin, Regular (Pork) (Verified Allergy, Unknown, HIVES, 05/30/23) Home Meds Active Scripts Aspirin (Aspir-Low) 81 Mg Tab, 81 MG PO QAM for 30 Days, #30 TAB Prov:JAMES DANIELS MD 06/20/24 Diltiazem Hcl (DILTIAZEM HCL ER) 240 Mg Cap, 240 MG PO QAM for 30 Days, #30 CAP Prov:JAMES DANIELS MD 06/20/24 Digoxin (Lanoxin) 125 Mcg Tab, 0.125 MG PO Q48 HOURS for 14 Days, #14 TAB Prov:JAMES DANIELS MD 06/20/24 Amiodarone HCl (Amiodarone HCl) 200 Mg Tab, 200 MG PO Q12HR for 30 Days, #60 TAB Prov:JAMES DANIELS MD 06/20/24 Reported Medications Glipizide (Glipizide) 5 Mg Tab, 2.5 MG PO BID for 30 Days, MG 05/29/23 Irbesartan (IRBESARTAN) 300 Mg Tab, 150 MG PO DAILY, TAB 05/29/23 Metoprolol Tartrate (Metoprolol Tartrate) 25 Mg Tab, 25 MG PO BID for 30 Days, MG 05/29/23 Levothyroxine Sodium (Synthroid) 75 Mcg Tab, 1 TAB PO DAILY, #30 TAB 5 Refills 05/29/23 Levetiracetam (KEPPRA TABLET) 500 Mg Tb, 250 MG PO BID, TAB 05/29/23 Metformin Hydrochloride (Metformin Hcl) 500 Mg Tab, 1 TAB PO BID 11/01/22 Information Source: Patient Mode of Arrival: Wheelchair Timing: Hours Duration: Since onset Prehospital treatment: None Quality: None Vomitus: None Stool: Watery Severity: Moderate Recent: None Recent Hx of: None Pain Location: None Modifying Factors: Nothing Associated sign and symptoms: Diarrhea Past Medical History PAST MEDICAL HISTORY: CKF, CVA, DM, HTN, OR, Seizures Surgical History: Appendectomy, Hysterectomy, Tonsillectomy Surgical History (Other): Right shoulder surgery, neck surgery, cataract surgery BILINGUAL PATIENT SUPPORT CASEWORKER History: No Pertinent BILINGUAL PATIENT SUPPORT CASEWORKER History Family History Family History: Reviewed,noncontributory to illness, Family hx of Cancer, Family hx of heart ana Social History Smoker: Non-Smoker, Quit Greater Than 1 Year Alcohol: Rarely Drugs: Denies Drug Use Lives In: Home Constitutional: reports: weakness; denies: chills, diaphoresis, fatigue, fever, malaise, sweats, others EENTM: denies: blurred vision, double vision, ear bleeding, ear discharge, ear drainage, ear pain, ear ringing, eye pain, eye redness, hearing loss, mouth pain, mouth swelling, nasal discharge, nose bleeding, nose congestion, nose pain, photophobia, tearing, throat pain, throat swelling, voice changes, others Respiratory: denies: cough, hemoptysis, orthopnea, SOB at rest, shortness of breath, SOB with excertion, stridor, wheezing, others Cardiovascular: denies: chest pain, dizzy spells, diaphoresis, Dyspnea on exertion, edema, irregular heart beat, left arm pain, lightheadedness, palpitations, PND, syncope, others Gastrointestinal: reports: diarrhea; denies: abdomen distended, abdominal pain, blood streaked bowels, constipated, dysphagia, difficulty swallowing, hematemesis, melena, nausea, poor appetite, poor fluid intake, rectal bleeding, rectal pain, vomiting, others Genitourinary: denies: abnormal vagina bleeding, burning, dyspareunia, dysuria, flank pain, frequency, hematuria, incontinence, pain, , vagina discharge, urgency, others Neurological: denies: dizziness, fainting, headache, left sided numbness, left sided weakness, numbness, paresthesia, pre-existing deficit, right sided numbness, right sided weakness, seizure, speech problems, tingling, tremors, weakness, others Musculoskeletal: denies: back pain, gout, joint pain, joint swelling, muscle pain, muscle stiffness, neck pain, others Integumetry: denies: bruises, change in color, change in hair/nails, dryness, laceration, lesions, lumps, rash, wounds, others Allergic/Immunocompromised: denies: Difficulty Healing, Frequent Infections, Hives, Itching, others Hematologic/Lymphatic: denies: anemia, blood clots, easy bleeding, easy bruising, swollen glands, others Endocrine: denies: excessive hunger, excessive sweating, excessive thirst, excessive urination, flushing, intolerance to cold, intolerance to heat, unexplained weight gain, unexplained weight loss, others Psychiatric: denies: anxiety, bipolar disorder, depression, hopeless, panic disorder, schizophrenia, sleepless, suicidal, others All Other Systems: Reviewed and Negative Physical Exam General Appearance: Moderate Distress HEENT: Normal ENT Inspection, Pharynx Normal, TMs Normal Neck: Full Range of Motion, Non-Tender, Normal, Normal Inspection Respiratory: Chest Non-Tender, Lungs Clear, No Accessory Muscle Use, No Respiratory Distress, Normal Breath Sounds Cardiovascular: No Edema, No JVD, No Murmur, No Gallop, Normal Peripheral Pulses, Regular Rate/Rhythm Breast Exam: Deferred Gastrointestinal: Diffuse, No Organomegaly, No Pulsatile Mass, Normal Bowel Sounds, Soft, Tenderness Genitalia: Deferred Pelvic: Deferred Rectal: Deferred Extremities: No calf tenderness, Normal capillary refill, Normal inspection, Normal range of motion, Non-tender, No pedal edema Musculoskeletal : Apperance: Normal Neurologic: Alert, magnetic tape typewriter operator II-XII nml as Tested, Motor Weakness, Normal Affect, Normal Mood, No Sensory Deficits Cerebellar Function: Normal Reflexes: Normal Skin: Dry, Pallor, Warm Lymphatic: No Adenopathy Was a procedure done? Was a procedure done?: No GI differential Dx Differential Diagnosis: Gastritis/PUD, Gastroenteritis, Inflammatory BD, Pancreatitis, UTI, Electrolyte Imbalance, Food Poisoning X-Ray, Labs, Meds, VS Vital Signs Date Time Temp Pulse Resp B/P (MAP) Pulse Ox O2 Delivery O2 Flow Rate FiO2 12/03/24 16:50 98.3 98 16 121/67 (85) 95 98.3 Lab Test 12/03/24 15:50 Range/Units White Blood Count 7.3 4.4-10.8 10^3/uL Red Blood Count 3.62 L 4.0-5.20 10^6/uL Hemoglobin 12.8 12.2-16.2 g/dL Hematocrit 37.6 36.0-46.0 % Mean Corpuscular Volume 103.8 H 80.0-100.0 fL Mean Corpuscular Hemoglobin 35.4 H 28.0-32.0 pg Mean Corpuscular Hemoglobin Concent 34.1 32.0-36.0 g/dL Red Cell Distribution Width 12.1 11.8-14.3 % Platelet Count 233 140-450 10^3/uL Mean Platelet Volume 9.0 6.9-10.8 fL Neutrophils (%) (Auto) 61.9 37.0-80.0 % Lymphocytes (%) (Auto) 26.1 10.0-50.0 % Monocytes (%) (Auto) 8.8 0.0-12.0 % Eosinophils (%) (Auto) 2.4 0.0-7.0 % Basophils (%) (Auto) 0.8 0.0-2.0 % Neutrophils # (Auto) 4.5 1.6-8.6 10 ^3/uL Lymphocytes # (Auto) 1.9 0.4-5.4 10 ^3/uL Monocytes # (Auto) 0.6 0-1.3 10 ^3/uL Eosinophils # (Auto) 0.2 0-0.8 10 ^3/uL Basophils # (Auto) 0.1 0-0.2 10 ^3/uL Nucleated Red Blood Cells 0.0 % Sodium Level 142 136-145 mmol/L Potassium Level 4.3 3.5-5.1 mmol/L Chloride Level 105 98-107 mmol/L Carbon Dioxide Level 27 20-31 mmol/L Anion Gap 10 5-15 Blood Urea Nitrogen 38 H 9-23 mg/dL Creatinine 2.21 H 0.550-1.02 mg/dL Glomerular Filtration Rate Calc 21 >90 mL/min BUN/Creatinine Ratio 17.2 10.0-20.0 Serum Glucose 110 H 74-106 mg/dL Calcium Level 10.4 8.7-10.4 mg/dL Total Bilirubin 0.4 0.2-1.0 mg/dL Aspartate Amino Transferase (AST) 11 L 13-40 U/L Alanine Aminotransferase (ALT) 11 7-40 U/L Alkaline Phosphatase 70 46-116 U/L Total Protein 6.7 5.7-8.2 g/dL Albumin 4.2 3.2-4.8 g/dL Lipase 28 12-53 U/L Scan of the abdomen and pelvis shows: IMPRESSION: Limited evaluation without contrast. Hepatic dome/ right hepatic lobe not completely characterized. 1. Rectal wall thickening . Correlate for proctocolitis. 2. Atherosclerotic disease. 3. Sequela of chronic pancreatitis. 4. Fecal like contents within the small bowel which can be seen with ileus, hypomotility, bowel obstruction. 5. Right lower lobe atelectasis/consolidation. Other findings as described. The patient's CBC is within normal limits The chemistry panel shows a BUN of 38 and a creatinine of 2.21 At this time the patient will be admitted to the hospitalist Images Reviewed?: Images reviewed and evaluated by me Time of 1ST Reevaluation: 17:05 Reevaluation 1ST: Unchanged Patient Education/Counseling: Diagnosis, Treatment, Prognosis Family Education/Counseling: No Family Present Additional Information Reviewed patient's previous visit(s): 06/17/24 for junctional tachycardia The following tests were ordered, and results were reviewed by me: Additional information was gathered from interviewing the following independent historian: NONE I reviewed and agreed with the following test results read by other provider: NONE I discussed treatments and results with medical personnel and: Patient Comprehensive systems review obtained and negative except for what is stated in the HPI. Departure 1 Departure Time of Disposition: 17:05 Impression: Primary Impression: Acute abdominal pain Additional Impressions: Diarrhea Qualified Codes: R19.7 - Diarrhea, unspecified Autonomic dysfunction Dehydration Disposition: ADMITTED INPATIENT Admit to: Med Surg Condition: Fair Critical Care Note Critical Care Time?: No Stability Stability form required: Yes Unstable for transfer: ED Physician Assesment (Clinical assesment) Heart Score Heart Score: Heart Score Response (Comments) Value History N/A 0 EKG N/A 0 Age N/A 0 Risk Factors N/A 0 Troponin N/A 0 Total 0 I personally scribed for KIM CRONIN MD ([email or web address]) on 12/03/24 at 15:48. Electronically submitted by Josep Murillo ([email or web address]). I personally scribed for KIM CRONIN MD ([email or web address]) on 6/5/25 at 17:07. Electronically submitted by Josep Murillo ([email or web address]). KIM CRONIN MD Dec 03, 2024 15:48
[2024-12-03 16:15] LABS: Basophils # (auto) 0.1 10 ^3/uL (0-0.2); Basophils % (auto) 0.8 % (0.0-2.0); Eosinophils # (auto) 0.2 10 ^3/uL (0-0.8); Eosinophils % (auto) 2.4 % (0.0-7.0); Hematocrit 37.6 % (36.0-46.0); Hemoglobin 12.8 g/dL (12.2-16.2); Lymphocytes # (auto) 1.9 10 ^3/uL (0.4-5.4); Lymphocytes % (auto) 26.1 % (10.0-50.0); Mean Corpuscular Hemoglobin 35.4 pg (28.0-32.0); Mean Corpuscular Hgb Conc. 34.1 g/dL (32.0-36.0); Mean Corpuscular Volume 103.8 fL (80.0-100.0); Monocytes # (auto) 0.6 10 ^3/uL (0-1.3); Monocytes % (auto) 8.8 % (0.0-12.0); Neutrophils # (auto) 4.5 10 ^3/uL (1.6-8.6); Neutrophils % (auto) 61.9 % (37.0-80.0); Platelet Count (auto) 233 10^3/uL (140-450); Red Blood Cells 3.62 10^6/uL (4.0-5.20); Red Cell Distribution Width 12.1 % (11.8-14.3); White Blood Cell 7.3 10^3/uL (4.4-10.8)
--- NOTE | 2024-12-03 16:31 | DVH ---
Indication: pain Technique: CT axial images of the abdomen and pelvis are obtained without contrast. Coronal and sagit estela reformats were obtained. Radiation Dose Information: CTDI volume is 5.07 mGy. Dose-length product is 220.56 mGy*cm Comparison: [employer] on DOS: 08/16/22 FINDINGS: There is limited interpretation of the abdomen and pelvis without administration of intravenous contr ast. The hepatic dome/ right hepatic lobe is not completely characterized. Lung bases demonstrate right lower lobe consolidation/atelectasis. Adrenal glands, spleen unremarkable in shape. Pancreatic calcifications and parenchymal atrophy. Candy er unremarkable in shape. No CT evidence for cholelithiasis. No hydronephrosis / nephrolithiasis. Renal vascular calcifications. Stomach partially distended. Small bowel loops are moderately distended with fecal like contents. Rectal wall thickening. Moderate volume stool in the colon. No secondary signs for appendicitis. Abdominal aortic atherosclerotic disease. Bladder distended. No free pelvic fluid. No inguinal lympha denopathy. Postsurgical changes of the anterior abdominal and pelvic wall. Moderate to advanced lumbar degenerative disc disease and facet hypertrophic changes. IMPRESSION: Limited evaluation without contrast. Hepatic dome/ right hepatic lobe not completely axel acterized. 1. Rectal wall thickening . Correlate for proctocolitis. 2. Atherosclerotic disease. 3. Sequela of chronic pancreatitis. 4. Fecal like contents within the small bowel which can be seen with ileus, hypomotility, bowel obstr uction. 5. Right lower lobe atelectasis/consolidation. Other findings as described.
[2024-12-03 16:33] LABS: Alanine Aminotransferase 11 U/L (7-40); Albumin 4.2 g/dL (3.2-4.8); Alkaline Phosphatase 70 U/L (46-116); Anion Gap 10 (5-15); BUN/Creatinine Ratio 17.2 (10.0-20.0); Calcium 10.4 mg/dL (8.7-10.4); Carbon Dioxide 27 mmol/L (20-31); Chloride 105 mmol/L (98-107); Lipase 28 U/L (12-53); Potassium 4.3 mmol/L (3.5-5.1); Sodium 142 mmol/L (136-145); Total Protein 6.7 g/dL (5.7-8.2)
[2024-12-03 16:34] LABS: Bilirubin, Total 0.4 mg/dL (0.2-1.0)
[2024-12-03 16:35] LABS: Aspartate Aminotransferase 11 U/L (13-40); Blood Urea Nitrogen 38 mg/dL (9-23); Glucose 110 mg/dL (74-106)
[2024-12-03] MEDS ORDERED: ONDANSETRON HCL 4 MG/2 ML VIAL IV PRN (18:00)
[2024-12-03] MEDS: SODIUM CHLORIDE 0.9% 1,000 ML IV SCH (18:00)
[2024-12-03] MEDS ORDERED: HYDROcodone-ACET 5/325MG TAB PO PRN (18:00)
[2024-12-03] MEDS ORDERED: ACETAMINOPHEN 325 MG TAB PO PRN (18:00)
[2024-12-03] MEDS ORDERED: MORPHINE SULFATE INJ 2 MG/ml SYRG IV PRN (18:00)
--- NOTE | 2024-12-03 18:05 | DVHHP2 ---
History of Present Illness Reason for Visit: Maude History of Present Illness Patient is 89 year-old F with a PMHx of DM2, HTN, A-Fibb, h/o Subdural Hematoma, who came to the ED after she was visiting her spouse and had abdominal pain with explosive diarrhea. Soon after patient became lethargic, weak, hypotensive and unable to stand. Patient was sent to the ER for further workup and care. Patient report she has been feeling weak recently and abdominal pain for 1-2 days. No fever, chills, SOB, Chest pain, or any other complaints. Past Medical History See above Review of Systems Constitutional: No: Fever, Chills, Sweats, Weakness, Malaise, Other Eyes: No: Pain, Vision change, Conjunctivae inflammation, Eyelid inflammation, Other, Redness ENT: No: Ear pain, Ear discharge, Nose pain, Nose discharge, Nose congestion, Mouth pain, Mouth swelling, Throat pain, Throat swelling, Other Respiratory: No: Cough, Dry, Shortness of breath, SOB with excertion, Wheezing, Hemoptysis, Pleuritic Pain, Sputum, Wheezing, Other Cardiovascular: No: Chest Pain, Palpitations, Orthopnea, Paroxysmal Noc. Dyspnea, Edema, Lt Headedness, Other Gastrointestinal: Abdominal Pain, Diarrhea Genitourinary: No Dysuria, No Frequency, No Incontinence, No Hematuria, No Retention, No Other Musculoskeletal: No: other, neck pain, shoulder pain, arm pain, back pain, hand pain, leg pain, foot pain Skin: No: Rash, Lesions, Jaundice, Bruising, Other Neurological: No: Weakness, Numbness, Incoordination, Change in speech, Confusion, Seizures, Other Allergies: Coded Allergies: Insulin, Regular (Pork) (Verified Allergy, Unknown, HIVES, 05/30/23) Medications Current Medications Medications Dose Ordered Sig/Keri Route Start Time Stop Time Status Last Admin Dose Admin Sodium Chloride 1,000 ml @ 60 mls/hr [id number] IV 12/03/24 18:00 UNV Acetaminophen 650 mg Q6HP PRN PO 12/03/24 18:00 UNV Acetaminophen/ Hydrocodone Bitart 1 tab Q4HP PRN PO 12/03/24 18:00 UNV Ondansetron HCl 4 mg Q4HP PRN IV 12/03/24 18:00 UNV Morphine Sulfate 2 mg Q4HPRN PRN IV 12/03/24 18:00 UNV Metronidazole 100 ml @ 100 mls/hr Q8HR IV 12/03/24 22:00 UNV Exam Vital Signs Vital Signs Date Time Temp Pulse Resp B/P (MAP) Pulse Ox O2 Delivery O2 Flow Rate FiO2 12/03/24 16:50 98.3 98 16 121/67 (85) 95 98.3 General Appearance: Alert, Oriented X3, Cooperative, mild distress HEENT: Atraumatic Respiratory: Clear to auscultation Cardiovascular: Regular rate, Normal S1, Normal S2 Abdominal: Normal bowel sounds, Soft Psych/Mental Status: Mental status NL Labs/Xrays Labs Test 12/03/24 15:50 Range/Units White Blood Count 7.3 4.4-10.8 10^3/uL Red Blood Count 3.62 L 4.0-5.20 10^6/uL Hemoglobin 12.8 12.2-16.2 g/dL Hematocrit 37.6 36.0-46.0 % Mean Corpuscular Volume 103.8 H 80.0-100.0 fL Mean Corpuscular Hemoglobin 35.4 H 28.0-32.0 pg Mean Corpuscular Hemoglobin Concent 34.1 32.0-36.0 g/dL Red Cell Distribution Width 12.1 11.8-14.3 % Platelet Count 233 140-450 10^3/uL Mean Platelet Volume 9.0 6.9-10.8 fL Neutrophils (%) (Auto) 61.9 37.0-80.0 % Lymphocytes (%) (Auto) 26.1 10.0-50.0 % Monocytes (%) (Auto) 8.8 0.0-12.0 % Eosinophils (%) (Auto) 2.4 0.0-7.0 % Basophils (%) (Auto) 0.8 0.0-2.0 % Neutrophils # (Auto) 4.5 1.6-8.6 10 ^3/uL Lymphocytes # (Auto) 1.9 0.4-5.4 10 ^3/uL Monocytes # (Auto) 0.6 0-1.3 10 ^3/uL Eosinophils # (Auto) 0.2 0-0.8 10 ^3/uL Basophils # (Auto) 0.1 0-0.2 10 ^3/uL Nucleated Red Blood Cells 0.0 % Sodium Level 142 136-145 mmol/L Potassium Level 4.3 3.5-5.1 mmol/L Chloride Level 105 98-107 mmol/L Carbon Dioxide Level 27 20-31 mmol/L Anion Gap 10 5-15 Blood Urea Nitrogen 38 H 9-23 mg/dL Creatinine 2.21 H 0.550-1.02 mg/dL Glomerular Filtration Rate Calc 21 >90 mL/min BUN/Creatinine Ratio 17.2 10.0-20.0 Serum Glucose 110 H 74-106 mg/dL Calcium Level 10.4 8.7-10.4 mg/dL Total Bilirubin 0.4 0.2-1.0 mg/dL Aspartate Amino Transferase (AST) 11 L 13-40 U/L Alanine Aminotransferase (ALT) 11 7-40 U/L Alkaline Phosphatase 70 46-116 U/L Total Protein 6.7 5.7-8.2 g/dL Albumin 4.2 3.2-4.8 g/dL Lipase 28 12-53 U/L Assessment/Plan Assessment/Plan # Infectious Diarrhea vs Colitis - Abx - Stool Culture # DM2 - SSI if needed # HTN - Monitor and adjust meds as needed # DVT Prop - SCDs # Goals of care >18mins FULL CODE Plan discussed with: Patient My Orders Orders - JAMES DANIELS MD Procedure Category Date Status Time Stool Bacterial RUBEN 12/03/24 Logged Culture 17:49 Stool Wbc LAB 12/03/24 Logged 17:49 Admit ADMIT 12/03/24 Transmitted 17:49 Code Status CODE 12/03/24 Transmitted 17:49 Vital Signs IMRANDA 12/03/24 In Process 17:49 Review Orders With MIRANDA 12/03/24 In Process Adm. 17:49 Consistent DIET 12/03/24 Transmitted Carb(Ccho)Diabetes Dinner Sodium Chloride 0.9% PHA 12/03/24 Logged 18:00 Acetaminophen Tablet PHA 12/03/24 Logged (Tylenol Tablet) 18:00 Notify Of Changes MIRANDA 12/03/24 In Process From Base 17:49 Advance Directive MIRANDA 12/03/24 In Process 17:49 Urinalysis LAB 12/03/24 Logged 17:49 Patient Condition ORDERS 12/03/24 Transmitted 17:49 Allergies MIRANDA 12/03/24 In Process 17:49 Hydrocodone-Acet PHA 12/03/24 Logged 5/325mg Tab ([place] 18:00 Ondansetron Hcl PHA 12/03/24 Logged (Zofran) 18:00 Morphine Sulfate PHA 12/03/24 Logged Injection 18:00 Sodium Chloride 0.9% PHA 12/03/24 Logged 18:00 Ceftriaxone 1gm/50ml PHA 12/03/24 Logged D5w (Rocephin) 18:00 Metronidazole PHA 12/03/24 Logged 500mg/100ml (Flagyl 22:00 Date of Service: Dec 03, 2024 Billing Provider: JAMES DANIELS MD Common Visit Codes: 41750-[id number] INP/OBS CARE(MOD) Secondary Visit Codes: 21129-DOEZOUGM CARE PLAN 30 MINUTES JAMES DANIELS MD Dec 03, 2024 18:05
[2024-12-03 18:26] VITALS: PULSE 81; RESP 16; O2SAT 99
[2024-12-03 18:46] LABS: Urine Bacteria FEW /hpf (None Seen); Urine Blood Negative /uL (Negative); Urine Clarity Turbid (Clear); Urine Color Colorless (Yellow); Urine Mucus FEW (None Seen); Urine Protein, UAD Negative (Negative); Urine Specific Gravity 1.009 (1.001-1.035); Urine Squamous Epithelial Cell FEW /hpf (<5); Urine Urobilinogen Normal (Negative); Urine WBC 329 /HPF (0-5); Urine pH 5.5 (5.0-9.0)
[2024-12-03] MEDS: SODIUM CHLORIDE 0.9% 1,000 ML IV ONE (19:29)
[2024-12-03] MEDS: cefTRIAXone 1GM/50ML D5W 50 ML IV ONE (19:30)
[2024-12-03 20:40] VITALS: BP 103/66; PULSE 87; RESP 18; TEMP 97.7; O2SAT 96
[2024-12-03 21:00] VITALS: BP 103/66; PULSE 87; RESP 18; TEMP 97.7; O2SAT 99
[2024-12-03] MEDS: metroNIDAZOLE 500MG/100ML 100 ML IV SCH (22:07)
[2024-12-04] VITALS (8 sets, daily range): BP systolic 106–122; BP diastolic 61–78; PULSE 87–106; RESP 16–20; TEMP 97.3–98.7; O2SAT 97–99
--- NOTE | 2024-12-04 17:38 | DVHPN2 ---
Subjective in bed with some pain Reviewed: H&P, Labs Changes from previous H/P or p: No Changes Eyes: No Pain, No Vision change, No Conjunctivae inflammation, No Eyelid inflammation, No Other, No Redness ENT: No Ear pain, No Ear discharge, No Nose pain, No Nose discharge, No Nose congestion, No Mouth pain, No Mouth swelling, No Throat pain, No Throat swelling, No Other Cardiovascular: No Chest Pain, No Palpitations, No Orthopnea, No Paroxysmal Noc. Dyspnea, No Edema, No Lt Headedness, No Other Respiratory: No Cough, No Dry, No Shortness of breath, No SOB with excertion, No Wheezing, No Hemoptysis, No Pleuritic Pain, No Sputum, No Other Gastrointestinal: Abdominal Pain, Diarrhea Genitourinary: No Dysuria, No Frequency, No Incontinence, No Hematuria, No Retention, No Other Musculoskeletal: No other, No neck pain, No shoulder pain, No arm pain, No back pain, No hand pain, No leg pain, No foot pain Skin: No Rash, No Lesions, No Jaundice, No Bruising, No Other Objective Vitals Vital Signs Date Time Temp Pulse Resp B/P (MAP) Pulse Ox O2 Delivery O2 Flow Rate FiO2 12/04/24 16:40 97.4 88 16 120/62 (81) 98 97.4 12/04/24 08:00 Room Air* 0 21 Intake/Output Intake and Output 12/04/24 07:00 Intake Total 800 ml Balance 800 ml Intake Oral 750 ml IV Total 50 ml # Voids 3 General Appearance: Alert, Oriented X3 Lungs: Clear to auscultation Cardiovascular: Regular rate, Normal S1, Normal S2 Abdomen: Normal bowel sounds Medications Current Medications Medications Dose Ordered Sig/Keri Route Start Time Stop Time Status Last Admin Dose Admin Sodium Chloride 1,000 ml @ 60 mls/hr [id number] IV 12/03/24 18:00 12/04/24 10:11 60 MLS/HR Acetaminophen 650 mg Q6HP PRN PO 12/03/24 18:00 Acetaminophen/ Hydrocodone Bitart 1 tab Q4HP PRN PO 12/03/24 18:00 Ondansetron HCl 4 mg Q4HP PRN IV 12/03/24 18:00 Morphine Sulfate 2 mg Q4HPRN PRN IV 12/03/24 18:00 Metronidazole 100 ml @ 100 mls/hr Q8HR IV 12/03/24 22:00 12/04/24 16:22 100 MLS/HR Laboratory Results Laboratory Tests 12/03/24 15:50 HgA1c, TSH Test 12/04/24 05:20 Hemoglobin A1c 7.4 % A1C (<5.7) H Urinalysis Test 12/03/24 17:20 Urine Color Colorless (Yellow) Urine Clarity Turbid (Clear) H Urine pH 5.5 (5.0-9.0) Urine Specific [place] 1.009 (1.001-1.035) Urine Protein Negative (Negative) Urine Ketones Negative (Negative) Urine Blood Negative /uL (Negative) Urine Nitrite 1+ (Negative) H Urine Bilirubin Negative (Negative) Urine Urobilinogen Normal mg/dL (Negative) Urine Leukocyte Esterase 3+ /uL (Negative) Urine RBC 2 /hpf (0 - 4) Urine Microscopic WBC 329 /HPF (0-5) H Urine Squamous Epithelial Cells Few /hpf (<5) Urine Bacteria Few /hpf (None Seen) H Urine Mucus Few (None Seen) Urine Glucose Normal mg/dL (Normal) Assessment/Plan Assessment/Plan # Infectious Diarrhea vs Colitis - Abx - Stool Culture # DM2 - SSI if needed # HTN - Monitor and adjust meds as needed # DVT Prop - SCDs Plan discussed with: Patient Date of Service: Dec 04, 2024 Billing Provider: CHASITY BAKER MD Common Visit Codes: [id number] INP/OBS CARE(HIGH) CHASITY BAKER MD Dec 04, 2024 17:38
[2024-12-05 01:00] VITALS: BP 95/50; PULSE 93; RESP 18; TEMP 97.6; O2SAT 98
[2024-12-05 05:00] VITALS: BP 105/76; PULSE 92; RESP 18; TEMP 96.8; O2SAT 98
[2024-12-05 09:00] VITALS: BP 101/69; PULSE 87; RESP 14; TEMP 96.7; O2SAT 99
[2024-12-05 12:36] LABS: Potassium 4.4 mmol/L (3.5-5.1); Sodium 143 mmol/L (136-145)
[2024-12-05 12:38] LABS: Anion Gap 7 (5-15); Calcium 9.8 mg/dL (8.7-10.4); Carbon Dioxide 26 mmol/L (20-31)
[2024-12-05 12:40] LABS: Chloride 110 mmol/L (98-107)
[2024-12-05 12:43] LABS: BUN/Creatinine Ratio 16.9 (10.0-20.0); Blood Urea Nitrogen 27 mg/dL (9-23); Glucose 161 mg/dL (74-106)
[2024-12-05 12:52] VITALS: BP 120/76; PULSE 65; RESP 16; TEMP 97.5; O2SAT 100
[2024-12-05] MEDS ORDERED: AUG875T PO (12:53)
== END 2024-12-05 15:40 | disposition home or self-care (01) | DRG 371 ==
LOC: ER 15:26 → OVERFLOW 17:49 → CENTRAL 17:56
PROVIDERS: ADMIT Hospitalist; ATTEND Hospitalist
DX: A04.9 Bacterial intestinal infection, unspecified (principal); N17.0 Acute kidney failure with tubular necrosis; I10 Essential (primary) hypertension; E11.9 Type 2 diabetes mellitus without complications; G90.89 Other disorders of autonomic nervous system; E86.0 Dehydration; Z88.8 Allergy status to other drugs, medicaments and biological substances; Z79.82 Long term (current) use of aspirin; Z79.84 Long term (current) use of oral hypoglycemic drugs; Z79.899 Other long term (current) drug therapy; Z90.710 Acquired absence of both cervix and uterus
CPT/HCPCS: 36415; 74176; 80048; 80053; 81001; 83036; 83690; 85025; 85048; 87045; 87427; 87493; 96365; G0378; J3490